=== PATIENT | female | born 1955 | race Caucasian/White ===

== ENCOUNTER 2017-12-16 22:13 | Emergency (ER) | payer OTHER, SELFPAY ==
[2017-12-16 22:25] VITALS: BP 183/100; PULSE 112; RESP 12; TEMP 37.2; O2SAT 95; BMI 26.6
--- NOTE | 2017-12-16 23:05 | DI.CT.S_ITS ---
PROCEDURE: CT ABDOMEN PELVIS W CON INDICATIONS: pain vomiting marilu stool TECHNIQUE: After the administration of intravenous contrast, 5 mm thick sections acquired from the diaphragm to the symphysis. 5 mm coronal and sagittal reformats were acquired. For radiation dose reduction, the following was used: automated exposure control, adjustment of mA and/or kV according to patient size. COMPARISON: [facility], CT, ABDOMEN WITH CONTRAST, 07/11/2017, 11:53. FINDINGS: Image quality: Excellent. ABDOMEN: Lung bases: Lung bases are clear. Heart size is normal. Solid organs: Liver is normal in size and enhancement. Diffuse fatty infiltration of the liver. Gallbladder surgically absent. Biliary system is non dilated. Pancreas enhances normally. Spleen is normal in size and enhancement. No adrenal nodules. Kidneys demonstrate normal size and enhancement, without hydronephrosis. Exophytic left renal cyst is stable compared to prior exam. Peritoneum and bowel: Bowel loops demonstrate normal wall thickness and caliber. No free fluid or air. The appendix is normal. Nodes and vessels: No retroperitoneal or mesenteric adenopathy by size criteria. Aorta and inferior vena cava are normal in size. Miscellaneous: No ventral hernias. Stranding of the subcutaneous fat of the anterior mid abdominal wall which is stable compared to prior CT scan. PELVIS: Genitourinary: Bladder wall thickness is normal. Pessary ring noted. Miscellaneous: No inguinal hernias or adenopathy. Bones: No suspicious bony lesions. No vertebral body compression fractures. IMPRESSION: 1. No acute disease process. 2. Hepatic steatosis. 3. Status post cholecystectomy. Dictated by: Prudence Blake MD, PhD on 12/17/2017 at 9:13 Approved by: Prudence Blake MD, PhD on 12/17/2017 at 9:18
[2017-12-16 23:14] LABS: Add Manual Diff / Slide Review NO; Basophils Percent Auto 0.5 % (0-2); Eosinophils Percent Auto 0.6 % (2-4); Hematocrit 42.5 % (36-46); Hemoglobin 14.6 g/dL (12.0-16.0); Lymphocytes Percent Auto 50.4 % (25-40); Mean Corpuscular HGB Conc 34.4 % (30-36); Mean Corpuscular Hemoglobin 31.5 PG (26-34); Mean Corpuscular Volume 91.7 fL (80-100); Monocytes Percent Auto 5.8 % (3-14); Neutrophils Absolute Auto 4100 /uL (3000-5900); Neutrophils Percent Auto 42.7 % (50-75); Platelet Count 234 X10^3/uL (150-400); Red Blood Cell Count 4.64 X10^6/uL (4.0-5.2); Red Cell Distribution Width 12.9 % (11.6-14.8); White Blood Cell Count 9.6 X10^3/uL (4.5-11.0)
[2017-12-16 23:16] LABS: Alanine Aminotransferase 26 IU/L (9-52); Albumin 4.4 g/dL (3.5-5.0); Albumin Globulin Ratio 1.4 (1.0-2.8); Alkaline Phosphatase 176 U/L (38-126); Aspartate Aminotransferase 27 IU/L (14-36); BUN Creatinine Ratio 22.2 (6-22); Bilirubin Total 0.6 mg/dL (0.2-1.3); Blood Urea Nitrogen 20 mg/dL (7-17); Calcium 9.4 mg/dL (8.4-10.2); Carbon Dioxide 27 mmol/L (22-32); Chloride 100 mmol/L (98-107); Estimated Glomerular Filt Rate > 60.0 mL/min (>60); Globulin 3.2 g/dL (1.7-4.1); Glucose 336 mg/dL (80-110); Lipase 93 U/L (23-300); Sodium 138 mmol/L (137-145); Total Protein 7.6 g/dL (6.3-8.2)
[2017-12-16 23:18] LABS: HEMOLYSIS 62 (0-50)
[2017-12-16 23:20] LABS: Potassium 4.1 mmol/L (3.4-5.1)
--- NOTE | 2017-12-16 23:27 | ED_ITS ---
HPI - Abdominal Pain General Chief Complaint: Abdominal Pain Stated Complaint: STOMACH MAIN MARILU COLOR STOOLS BLOOD SUGAR 300 Time Seen by Provider: 12/16/17 22:50 Source: patient Mode of arrival: ambulatory Limitations: no limitations History of Present Illness HPI narrative: Patient is a 62-year-old female who presents with a variety of complaints. She has abdominal pain and nausea no vomiting. Started today yesterday she had 1 episode of marilu colored stool no further stool since. No blood. She has not had marilu-colored stool since her gallbladder was removed 20 years ago. She has not had any fever. She also has migraine headache she took her Imitrex which usually helps however it did not help this time. As this feels like a typical migraine she has no focal deficits. She has also itching all over she has no hives no difficulty breathing no tongue swelling or lip swelling. This is been ongoing for a few days. He is also a type 1 diabetic takes insulin and her glucose has been elevated in the 200 for the last couple of days as well. She was just in [facility] [place] on vacation MD complaint: abdominal pain Related Data Home Medications Medication Instructions Recorded Confirmed ibuprofen [Advil] 200 mg PO Q4HP PRN #0 07/11/17 10/17/17 Previous Rx's Medication Instructions Recorded Glucose: Test Strips 0 str #30 12/03/15 insulin aspart U-100 [Novolog 0 SQ TIDP PRN #15 vial 05/18/16 Flexpen U-100 Insulin] lisinopril 30 mg PO Q DAY #30 tab 05/31/16 famotidine [Pepcid] 40 mg PO BID #60 tab 06/03/16 estradiol [Vagifem] 10 mcg VG SEE INSTRUCTIONS #24 tab 08/03/16 amitriptyline 40 mg PO HS #120 tab 04/28/17 medroxyprogesterone 10 mg PO QDAY #14 tab 05/24/17 estradiol [Estring] 2 mg VAGINAL SEE INSTRUCTIONS #1 ea 05/25/17 insulin glargine [Lantus Solostar 40 - 45 unit SQ Q DAY #15 u 07/03/17 U-100 Insulin] citalopram 40 mg tablet 60 mg PO QDAY #135 tab 08/25/17 clonazepam 1 mg tablet 1 mg PO BID #60 tab 08/29/17 alprazolam 0.5 mg tablet See Label Instructions PO Q8H PRN 09/07/17 #30 tab sumatriptan 100 mg tablet 100 mg PO Q6HP #36 tab 10/17/17 sumatriptan 20 mg/actuation nasal 20 mg INTRANASAL SEE INSTRUCTIONS 10/17/17 spray #1 bot topiramate 100 mg tablet 100 mg PO .COMPLEX #60 tab 10/17/17 topiramate 50 mg tablet 50 mg PO .COMPLEX #60 tab 10/17/17 gabapentin 800 mg tablet 800 mg PO TID #90 tab 10/24/17 hydrocodone 10 mg-acetaminophen 1 - 2 tab PO Q4H PRN #90 tab 10/27/17 325 mg tablet zolpidem 5 mg tablet 5 mg PO HS PRN #30 tab 11/06/17 [place] 0 dev #150 11/09/17 Allergies Allergy/AdvReac Type Severity Reaction Status Date / Time codeine [CODEINE] AdvReac Intermediate nausea Verified 10/17/17 15:23 pantoprazole [PANTOPRAZOLE] AdvReac Intermediate NAUSEA, Verified 10/17/17 15:23 TINGLING IN HANDS AND FEET Review of Systems Review of Systems All systems reviewed & are unremarkable except as noted in HPI and below Constitutional Denies chills, Denies fever(s), Reports headache(s), Denies lethargy and Denies weakness Eyes Denies change in vision, Denies eye discharge, Denies irritation and Denies loss of vision ENT Ears, Nose, Mouth, and Throat: Denies change in voice, Reports headache(s), Denies neck pain and Denies sore throat Cardiovascular Denies chest pain, Denies irregular heart rhythm, Denies lightheadedness, Denies palpitations, Denies dyspnea, Denies dyspnea on exertion and Denies orthopnea Respiratory Denies cough, Denies dyspnea, Denies dyspnea on exertion and Denies wheezing Gastrointestinal Gastrointestinal: Reports as per HPI Musculoskeletal Denies neck pain Integumentary/Breasts Denies pruritus, Denies erythema, Denies rash and Denies wounds Neurologic Reports headache(s), Denies loss of vision and Denies weakness Endocrine Denies palpitations Allergic/Immunologic Denies wheezing PFSH Social History Smoking Status: Never smoker Exam Initial Vital Signs Initial Vital Signs: Vital Signs Temperature 98.9 F 12/16/17 22:25 Pulse Rate 112 H 12/16/17 22:25 Respiratory Rate 12 12/16/17 22:25 Blood Pressure 183/100 H 12/16/17 22:25 Pulse Oximetry 95 12/16/17 22:25 GENERAL: Well-appearing, well-nourished and in no acute distress. Slightly anxious HEENT: Head atraumatic,EOMI, pupils reactive, face symmetric, neck is supple no meningeal signs CARDIOVASCULAR: Regular rate and rhythm without murmurs, rubs or gallops. RESPIRATORY: Breath sounds equal bilaterally, no wheezes rales or rhonchi. ABDOMEN: Soft, nontender. Normoactive bowel sounds all 4 quadrants. No guarding or rebound. EXTREMITIES: Normal range of motion, no clubbing or edema. Neurovascularly intact NEUROLOGICAL: Alert and oriented x4.Normal gait and speech. Cranial nerves II through XII grossly intact. Body Shop Supervisor strength equal bilaterally SKIN: Warm, dry, no laceration, no petechiae, no rashes or lesions. Course Orders Ordered: ED Orders 12/16/17 22:50 Complete Blood Count AUTO DIFF Stat Comprehensive Metabolic Panel Stat Lipase Stat 12/16/17 23:05 CT abdomen pelvis w con Stat Discontinued Medications Sodium Chloride (Normal Saline 0.9%) 1,000 mls @ 1,000 mls/hr IV CONT KELLI Last Infusion: 12/17/17 01:09 Dose: 1,000 mls/hr Admin: 12/16/17 23:42 Dose: 1,000 mls/hr Ketorolac Tromethamine (Toradol) 30 mg IV NOW ONE Stop: 12/16/17 23:05 Last Admin: 12/16/17 23:42 Dose: 30 mg Ondansetron HCl (Zofran) 4 mg IV NOW ONE Stop: 12/16/17 23:05 Last Admin: 12/16/17 23:43 Dose: 4 mg Vital Signs - 8 hr 12/16/17 22:25 12/17/17 01:11 Temperature 98.9 F 97.8 F Pulse Rate 112 H 85 Respiratory Rate 12 17 Blood Pressure 183/100 H 135/79 Pulse Oximetry 95 100 MDM - Abdominal Pain Lab Data Attestation: I reviewed the patient's lab results. Result diagrams: 12/16/17 22:50 12/16/17 22:50 Lab Results 12/16/17 12/16/17 Range/Units 22:50 22:50 WBC 9.6 (4.5-11.0) X10^3/uL RBC 4.64 (4.0-5.2) X10^6/uL Hgb 14.6 (12.0-16.0) g/dL Hct 42.5 (36-46) % MCV 91.7 (80-100) fL MCH 31.5 (26-34) PG MCHC 34.4 (30-36) % RDW 12.9 (11.6-14.8) % Plt Count 234 (150-400) X10^3/uL Neut % (Auto) 42.7 L (50-75) % Lymph % (Auto) 50.4 H (25-40) % [place] % (Auto) 5.8 (3-14) % Eos % (Auto) 0.6 L (2-4) % Baso % (Auto) 0.5 (0-2) % Neut # (Auto) 4100 (6213-2474) /uL Sodium 138 (137-145) mmol/L Potassium 4.1 (3.4-5.1) mmol/L Chloride 100 (98-107) mmol/L Carbon Dioxide 27 (22-32) mmol/L BUN 20 H (7-17) mg/dL Creatinine 0.90 (0.52-1.04) mg/dL Estimated GFR > 60.0 (>60) mL/min BUN/Creatinine Ratio 22.2 H (6-22) Glucose 336 H (80-110) mg/dL Calcium 9.4 (8.4-10.2) mg/dL Total Bilirubin 0.6 (0.2-1.3) mg/dL AST 27 (14-36) IU/L ALT 26 (9-52) IU/L Alkaline Phosphatase 176 H (38-126) U/L Total Protein 7.6 (6.3-8.2) g/dL Albumin 4.4 (3.5-5.0) g/dL Globulin 3.2 (1.7-4.1) g/dL Albumin/Globulin Ratio 1.4 (1.0-2.8) Lipase 93 (23-300) U/L Imaging Data CT scan - abdomen: 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 Cholecystectomy. Simple cyst left kidney MDM Narrative Medical decision making narrative: Patient overall is feeling much better after Toradol. Blood work and CT are reassuring. Feels ready and able to go home. Discharge Plan Departure Patient Disposition: Home Clinical Impression: Abdominal pain, Migraine Discharge Date/Time: 12/17/17 01:12 Interventions: ED Discharge Assessment Last Done: 12/17/17 01:11 Instructions: DI for Abdominal Pain-Adult Activity Restrictions/Additional Instructions: *You have been diagnosed with abdominal pain and migraine headache *What to do: Blood work and CT are reassuring and within normal limits. *Continue to take medications as directed *Follow up with your primary care provider in 2-3 days *Return to ER if you should have any new, worsening or concerning symptoms Prescriptions: No Action Glucose: Test Strips Qty: 30 RF: 3 insulin aspart U-100 [Novolog Flexpen U-100 Insulin] 100 UNIT/1 ML insulin pen SQ TIDP PRNQty: 15 RF: 3 lisinopril 30 MG tablet 30 mg PO Q DAY Qty: 30 RF: 5 famotidine [Pepcid] 40 MG tablet 40 mg PO BID Qty: 60 RF: 0 estradiol [Vagifem] 10 MCG tablet 10 mcg VG SEE INSTRUCTIONS Qty: 24 RF: 0 amitriptyline 10 MG tablet 40 mg PO HS Qty: 120 RF: 6 medroxyprogesterone 10 MG tablet 10 mg PO QDAY Qty: 14 RF: 0 estradiol [Estring] 1 EACH ring 2 mg Vaginal SEE INSTRUCTIONS Qty: 1 RF: 3 insulin glargine [Lantus Solostar U-100 Insulin] 100 UNIT/1 ML insulin pen 40 - 45 unit SQ Q DAY Qty: 15 RF: 3 ibuprofen [Advil] 200 MG tablet 200 mg PO Q4HP PRNQty: 0 RF: 0 clonazepam 1 mg tablet 1 mg PO BID Qty: 60 RF: 3 alprazolam 0.5 mg tablet See Label Instructions PO Q8H PRN (Reason: anxiety) Qty: 30 RF: 0 gabapentin 800 mg tablet 800 mg PO TID Qty: 90 RF: 5 hydrocodone-acetaminophen 10-325 mg tablet 1 - 2 tab PO Q4H PRN (Reason: pain) Qty: 90 RF: 0 zolpidem 5 mg tablet 5 mg PO HS PRN (Reason: insomnia) Qty: 30 RF: 0 [place] Qty: 150 RF: PRN citalopram 40 mg tablet 60 mg PO QDAY Qty: 135 RF: 3 topiramate [Topamax] 100 mg tablet 100 mg PO .COMPLEX Qty: 60 RF: 11 topiramate 50 mg tablet 50 mg PO .COMPLEX Qty: 60 RF: 11 sumatriptan [Imitrex] 20 mg/actuation spray,non-aerosol 20 mg Intranasal SEE INSTRUCTIONS Qty: 1 RF: 0 sumatriptan succinate [Imitrex] 100 mg tablet 100 mg PO Q6HP Qty: 36 RF: 1 Referrals: Lewis Martinez MD [Primary Care Provider] -
[2017-12-16] MEDS: SODIUM CHLORIDE 0.9% 1,000 ML 1000 ML IV (23:42)
[2017-12-16] MEDS: KETOROLAC 60 MG/2 ML VIAL 30 MG IV (23:42)
[2017-12-16] MEDS: ONDANSETRON 4 MG/2 ML INJ IV (23:43)
[2017-12-17 01:11] VITALS: BP 135/79; PULSE 85; RESP 17; TEMP 36.6; O2SAT 100
== END 2017-12-17 01:12 | disposition home or self-care (01) ==
PROVIDERS: Emergency Provider Emergency Medicine; Family Provider Specialist; PCP Internal Medicine
DX: R10.9 Unspecified abdominal pain (principal); G43.909 Migraine, unspecified, not intractable, without status migrainosus
CPT/HCPCS: 74177; 80053; 83690; 85025; 96361; 96374; 96375; 99283; 99285; J1885; J2405; Q9967

== ENCOUNTER → 2017-12-20 12:53 | Outpatient (CLI) | payer OTHER, SELFPAY ==
[2017-12-20 14:01] LABS: Alanine Aminotransferase 28 IU/L (9-52); Albumin 4.1 g/dL (3.5-5.0); Albumin Globulin Ratio 1.4 (1.0-2.8); Alkaline Phosphatase 138 U/L (38-126); Aspartate Aminotransferase 18 IU/L (14-36); BUN Creatinine Ratio 25.7 (6-22); Bilirubin Total 0.7 mg/dL (0.2-1.3); Blood Urea Nitrogen 18 mg/dL (7-17); Calcium 9.3 mg/dL (8.4-10.2); Carbon Dioxide 29 mmol/L (22-32); Chloride 100 mmol/L (98-107); Cholesterol 253 mg/dL (140-199); Estimated Glomerular Filt Rate > 60.0 mL/min (>60); Glucose 376 mg/dL (80-110); HDL Cholesterol 35 mg/dL (40-60); HEMOLYSIS < 15 (0-50); Potassium 3.9 mmol/L (3.4-5.1); Sodium 140 mmol/L (137-145); Total Protein 7.1 g/dL (6.3-8.2); Triglycerides 470 mg/dL (35-150)
[2017-12-20 14:19] LABS: Erythrocyte Sedimentation Rate 10 MM/HR (0-20)
[2017-12-20 14:31] LABS: TSH w/ Reflex to FT4 1.19 uIU/mL (0.47-4.68)
== END ==
PROVIDERS: Family Provider Specialist; Visit Provider Internal Medicine
DX: K76.0 Fatty (change of) liver, not elsewhere classified (principal); R10.84 Generalized abdominal pain
CPT/HCPCS: 36415; 80053; 80061; 84443; 85651

== ENCOUNTER → 2018-07-06 12:25 | Outpatient (CLI) | payer OTHER, SELFPAY ==
[2018-07-06 13:55] LABS: Alanine Aminotransferase 35 IU/L (9-52); Albumin 4.5 g/dL (3.5-5.0); Albumin Globulin Ratio 1.4 (1.0-2.8); Alkaline Phosphatase 106 U/L (38-126); Aspartate Aminotransferase 22 IU/L (14-36); BUN Creatinine Ratio 18.6 (6-22); Bilirubin Total 0.8 mg/dL (0.2-1.3); Blood Urea Nitrogen 13 mg/dL (7-17); Calcium 9.4 mg/dL (8.4-10.2); Carbon Dioxide 22 mmol/L (22-32); Chloride 105 mmol/L (98-107); Cholesterol 292 mg/dL (140-199); Estimated Glomerular Filt Rate > 60.0 mL/min (>60); Globulin 3.2 g/dL (1.7-4.1); Glucose 235 mg/dL (80-110); HDL Cholesterol 34 mg/dL (40-60); HEMOLYSIS < 15 (0-50); LDL Cholesterol Calculated 187 mg/dL (<100); Potassium 4.4 mmol/L (3.4-5.1); Sodium 138 mmol/L (137-145); Total Protein 7.7 g/dL (6.3-8.2); Triglycerides 353 mg/dL (35-150)
== END ==
PROVIDERS: Family Provider Specialist; PCP Internal Medicine; Visit Provider Internal Medicine
DX: E78.00 Pure hypercholesterolemia, unspecified (principal)
CPT/HCPCS: 36415; 80053; 80061

== ENCOUNTER → 2018-08-08 11:10 | Outpatient (CLI) | payer OTHER, SELFPAY ==
[2018-08-09 16:18] LABS: C Peptide 2.66 ng/mL (0.80-3.85)
== END ==
PROVIDERS: Family Provider Specialist; PCP Internal Medicine; Visit Provider Internal Medicine
DX: E11.9 Type 2 diabetes mellitus without complications (principal)
CPT/HCPCS: 36415; 84681

== ENCOUNTER → 2018-09-01 13:44 | Outpatient (CLI) | payer OTHER, SELFPAY ==
[2018-09-01 17:05] LABS: Urine Chlamydia NOT DETECTED; Urine N gonorrhoeae NOT DETECTED
== END ==
PROVIDERS: Family Provider Specialist; PCP Internal Medicine; Visit Provider Physician Assistant
DX: N89.8 Other specified noninflammatory disorders of vagina (principal)
CPT/HCPCS: 87077; 87086; 87210; 87491; 87591

== ENCOUNTER → 2018-09-09 12:23 | Outpatient (CLI) | payer OTHER, SELFPAY | PROVIDERS: Family Provider Specialist; PCP Internal Medicine; Visit Provider Physician Assistant | DX: B96.89 Other specified bacterial agents as the cause of diseases classified elsewhere (principal); N76.0 Acute vaginitis | CPT/HCPCS: 87210 ==

== ENCOUNTER → 2019-04-16 13:21 | Outpatient (CLI) | payer OTHER, SELFPAY ==
[2019-04-16 14:12] LABS: Alanine Aminotransferase 26 IU/L (<35); Albumin 4.8 g/dL (3.5-5.0); Albumin Globulin Ratio 1.3 (1.0-2.8); Alkaline Phosphatase 209 U/L (38-126); Aspartate Aminotransferase 28 IU/L (14-36); BUN Creatinine Ratio 33.3 (6-22); Bilirubin Total 0.7 mg/dL (0.2-1.3); Blood Urea Nitrogen 20 mg/dL (7-17); Calcium 9.8 mg/dL (8.4-10.2); Carbon Dioxide 25 mmol/L (22-32); Chloride 99 mmol/L (98-107); Estimated Glomerular Filt Rate > 60.0 mL/min (>60); Globulin 3.7 g/dL (1.7-4.1); Glucose 399 mg/dL (80-110); HDL Cholesterol 28 mg/dL (40-60); HEMOLYSIS 27 (0-50); Potassium 4.4 mmol/L (3.4-5.1); Sodium 136 mmol/L (137-145); Total Protein 8.5 g/dL (6.3-8.2)
[2019-04-16 14:21] LABS: Cholesterol 332 mg/dL (140-199); Triglycerides 732 mg/dL (35-150)
== END ==
PROVIDERS: Family Provider Specialist; PCP Internal Medicine; Visit Provider Internal Medicine
DX: M48.02 Spinal stenosis, cervical region (principal); E11.9 Type 2 diabetes mellitus without complications; I10 Essential (primary) hypertension
CPT/HCPCS: 36415; 80053; 80061

== ENCOUNTER → 2019-04-23 12:58 | Outpatient (CLI) | payer OTHER, SELFPAY ==
--- NOTE | 2019-04-23 | DI.MRI.S_ITS ---
PROCEDURE: MR CERVICAL SPINE WO CON INDICATIONS: Spinal stenosis, cervical region TECHNIQUE: Noncontrast sagittal T1 spin echo and T2 fast spin echo, sagittal STIR, foraminal oblique sagittal T2 fast spin echo, and axial gradient echo or T2 fast spin echo through the cervical spine. COMPARISON: [facility], , CERVICAL SPINE 2 OR 3 VIEWS, 06/18/2009, 9:39. FINDINGS: Image quality: This examination is limited by involuntary motion artifact. Alignment and Curvature: There is mild retrolisthesis seen at the C4-C5 level. There is overall straightening of the normal cervical lordosis. Bone Marrow: Marrow demonstrates normal overall signal. Spinal Cord: Visualized spinal cord has normal size and signal. No cerebellar tonsillar herniation. Paraspinous Soft Tissues: No paravertebral masses. Prevertebral soft tissues are normal in thickness. C2-C3: Normal appearance. C3-C4: Normal appearance. C4-C5: Moderate loss of disc height is seen. Loss of disc signal is seen. Moderate to prominent generalized disc osteophyte complex is seen. Moderate facet joint hypertrophy is seen. There is moderate to severe bilateral neural foraminal narrowing seen, left worse than right. Moderate to severe central canal narrowing is seen, as on series 4 image 24. There is associated mass effect upon the ventral spinal cord. C5-C6: At least moderate disc osteophyte complex is seen. There is moderate bilateral neural foraminal narrowing seen, left worse than right. At least moderate central canal narrowing is seen. C6-C7: Mild loss of disc height is seen. Loss of disc signal is seen. Moderate to severe disc osteophyte complex is seen. Moderate to severe bilateral neural foraminal narrowing is seen. At least moderate central canal narrowing is seen. There is associated mass effect upon the ventral spinal cord. C7-T1: No significant abnormality is seen. IMPRESSION: Multiple levels of cervical spine degenerative change are seen, which are most prominent inferiorly. Dictated by: Adarsh Elizabeth M.D. on 04/23/2019 at 17:02 Approved by: Adarsh Elizabeth M.D. on 04/23/2019 at 17:06
== END ==
PROVIDERS: PCP Internal Medicine; Referring Provider Internal Medicine Endocrinology, Diabetes & Metabolism; Visit Provider Internal Medicine
DX: M48.02 Spinal stenosis, cervical region (principal); M47.812 Spondylosis without myelopathy or radiculopathy, cervical region
CPT/HCPCS: 72141

== ENCOUNTER → 2019-04-29 12:57 | Outpatient (CLI) | payer OTHER, SELFPAY ==
--- NOTE | 2019-04-29 | DI.US.S_ITS ---
PROCEDURE: US PELVIC COMPLETE INDICATIONS: POSTMENOPAUSAL BLEEDING TECHNIQUE: Real-time scanning was performed of the pelvic organs, with image documentation. Additional endovaginal scanning was necessary due to incomplete visualization of the adnexal and endometrial structures by transabdominal scanning. COMPARISON: [facility], CT, CT ABDOMEN PELVIS W CON, 12/16/2017, 23:45. [facility], US, US PELVIC COMPLETE, 08/09/2017, 15:15. FINDINGS: Transabdominal scanning: Limited scanning through the kidneys shows no hydronephrosis. No pathologic free abdominal or pelvic fluid. Endovaginal scanning: Uterus: Uterus is retroverted and normal in size at 4.2 x 3.3 x 3.3 cm. The endometrium measures 5 mm in combined thickness. Question of endometrial polyp measuring 0.6 cm. No internal vascularity. Ovaries: Within normal limits. Right ovary measures 1.4 x 2.1 x 1.4 cm. Left ovary measures 1.2 x 1.1 x 1.4 cm. IMPRESSION: 1. Persistent thickening of the endometrium measuring up to 5 mm in this postmenopausal patient with bleeding. Report that the patient had prior negative endometrial biopsy. Recommend continued surveillance. 2. Question of a small endometrial polyp. 3. Sonographic appearance of the ovaries is normal. Dictated by: Ramu Elkins M.D. on 04/29/2019 at 15:50 Approved by: Ramu Elkins M.D. on 04/29/2019 at 15:57
== END ==
PROVIDERS: PCP Internal Medicine; Referring Provider Internal Medicine Endocrinology, Diabetes & Metabolism; Visit Provider Obstetrics & Gynecology
DX: N95.0 Postmenopausal bleeding (principal); R93.89 Abnormal findings on diagnostic imaging of other specified body structures
CPT/HCPCS: 76830; 76856

== ENCOUNTER → 2019-05-14 17:32 | Outpatient (CLI) | payer OTHER, SELFPAY ==
--- NOTE | 2019-05-14 | DI.MRI.S_ITS ---
PROCEDURE: MR THORACIC SPINE WO CON INDICATIONS: BACK PAIN TECHNIQUE: Noncontrast sagittal T1 spine echo and T2 fast spin echo, sagittal STIR, axial T1 and T2 fast spin echo through the thoracic spine. COMPARISON: None. FINDINGS: Image quality: Excellent. Alignment and Curvature: There is normal bony alignment. Bone Marrow: Marrow is of normal overall signal. No acute vertebral body compression fractures. Spinal Cord: Visualized spinal cord is normal in size and signal. The minimal degenerative changes are seen along the intervertebral disc spaces. No intrinsic lesion is seen within the visualized lower cervical cord and thoracic cord. No adjacent paraspinal inflammation is seen. Paraspinous Soft Tissues: No paravertebral masses. Miscellaneous: On axial images, central canal and foramina appear widely patent at all scanned levels. IMPRESSION: Minimal degenerative changes, no underlying infection or neoplasm suspected. No trauma found. Dictated by: Arun Bassett M.D. on 05/15/2019 at 9:11 Approved by: Arun Bassett M.D. on 05/15/2019 at 9:12
--- NOTE | 2019-05-14 | DI.MRI.S_ITS ---
PROCEDURE: MR LUMBAR SPINE WO CON INDICATIONS: BACK PAIN TECHNIQUE: Noncontrast sagittal T1 spin echo and T2 fast echo, sagittal STIR, axial T1 and T2 fast spin echo through the lumbar spine. In cases with scoliosis, additional coronal T2 fast spin echo may be performed. COMPARISON: None. FINDINGS: Image quality: Excellent. Alignment and Curvature: There is normal bony alignment. Bone Marrow: Marrow is of normal overall signal. No acute vertebral body compression fractures. Spinal Cord: Conus medullaris terminates at the L1 level. Visualized cord demonstrates normal signal and size. Paraspinous Soft Tissues: No paravertebral masses. L1-L2: Normal appearance. L2-L3: Normal appearance. L3-L4: Normal appearance except for a slight degree of degenerative disc dehydration and bilateral mild facet osteoarthritis. No spinal or foraminal stenosis is associated.. L4-L5: A slight degree of degenerative disc dehydration is present, minimal disc height loss. Facet osteoarthritis is mild, slightly greater on the left than the right. No significant spinal or foraminal stenosis. L5-S1: Mild to moderate degenerative disc height reduction and desiccation. There is a slight posterior midline disc bulge. Facet osteoarthritis is mild, no appreciable spinal or foraminal stenosis. IMPRESSION: The degenerative changes along the lumbosacral spine are quite mild, and no area of spinal or foraminal stenosis is seen. No prior trauma found. Facet osteoarthritis may result in back pain, and there is generally symmetric mild facet degeneration except slightly greater on the left than the right at L4-L5. No prior trauma found. Dictated by: Arun Bassett M.D. on 05/15/2019 at 9:13 Approved by: Arun Bassett M.D. on 05/15/2019 at 9:17
== END ==
PROVIDERS: PCP Internal Medicine; Referring Provider Internal Medicine; Visit Provider Internal Medicine
DX: M54.9 Dorsalgia, unspecified (principal); M47.816 Spondylosis without myelopathy or radiculopathy, lumbar region; M47.817 Spondylosis without myelopathy or radiculopathy, lumbosacral region
CPT/HCPCS: 72146; 72148

== ENCOUNTER → 2019-06-17 10:41 | Outpatient (CLI) | payer OTHER, SELFPAY ==
[2019-06-17 12:40] LABS: BUN Creatinine Ratio 39.2 (6-22); Blood Urea Nitrogen 20 mg/dL (7-17); Calcium 9.3 mg/dL (8.4-10.2); Carbon Dioxide 28 mmol/L (22-32); Chloride 99 mmol/L (98-107); Estimated Glomerular Filt Rate > 60.0 mL/min (>60); Glucose 230 mg/dL (80-110); HEMOLYSIS 17 (0-50); Potassium 4.5 mmol/L (3.4-5.1); Sodium 136 mmol/L (137-145)
[2019-06-17 15:33] LABS: Creatinine Urine Random 31.7 mg/dL
[2019-06-17 15:37] LABS: Microalbumin Urine Random 1.3 mg/dL (0-1.6)
== END ==
PROVIDERS: PCP Internal Medicine; Referring Provider Internal Medicine Endocrinology, Diabetes & Metabolism; Visit Provider Internal Medicine Endocrinology, Diabetes & Metabolism
DX: E10.42 Type 1 diabetes mellitus with diabetic polyneuropathy (principal)
CPT/HCPCS: 36415; 80048; 82043; 82570; 83036

== ENCOUNTER → 2019-12-05 15:15 | Outpatient (CLI) | payer OTHER, SELFPAY ==
[2019-12-05 16:23] LABS: Add Manual Diff / Slide Review NO; Basophils Absolute Auto 100 /uL (0-100); Basophils Percent Auto 0.7 % (0-2); Eosinophils Absolute Auto 100 /uL (0-450); Eosinophils Percent Auto 0.7 % (2-4); Hemoglobin 13.1 g/dL (12.0-16.0); Lymphocytes Absolute Auto 4200 /uL (1100-4500); Lymphocytes Percent Auto 55.2 % (25-40); Mean Corpuscular HGB Conc 33.5 % (30-36); Mean Corpuscular Hemoglobin 30.3 PG (26-34); Mean Corpuscular Volume 90.4 fL (80-100); Monocytes Absolute Auto 400 /uL (0-900); Monocytes Percent Auto 5.8 % (3-14); Neutrophils Absolute Auto 2900 /uL (1500-7000); Neutrophils Percent Auto 37.6 % (50-75); Platelet Count 241 X10^3/uL (150-400); Red Blood Cell Count 4.32 X10^6/uL (4.0-5.2); White Blood Cell Count 7.7 X10^3/uL (4.5-11.0)
[2019-12-05 16:40] LABS: Hemoglobin A1C% w Est Avg Glu 9.2 % (4.0-6.0)
[2019-12-05 16:41] LABS: Alanine Aminotransferase 27 IU/L (<35); Albumin 4.3 g/dL (3.5-5.0); Albumin Globulin Ratio 1.4 (1.0-2.8); Alkaline Phosphatase 118 U/L (38-126); Aspartate Aminotransferase 26 IU/L (14-36); BUN Creatinine Ratio 30.6 (6-22); Bilirubin Total 0.5 mg/dL (0.2-1.3); Blood Urea Nitrogen 19 mg/dL (7-17); Calcium 9.2 mg/dL (8.4-10.2); Carbon Dioxide 28 mmol/L (22-32); Chloride 103 mmol/L (98-107); Cholesterol 260 mg/dL (140-199); Estimated Glomerular Filt Rate > 60.0 mL/min (>60); Glucose 235 mg/dL (80-110); HDL Cholesterol 32 mg/dL (40-60); HEMOLYSIS 17 (0-50); Magnesium 1.8 mg/dL (1.6-2.3); Sodium 137 mmol/L (137-145); Total Protein 7.3 g/dL (6.3-8.2); Triglycerides 487 mg/dL (35-150)
[2019-12-05 17:10] LABS: TSH w/ Reflex to FT4 1.47 uIU/mL (0.47-4.68)
[2019-12-06 10:55] LABS: SARS CoV19 IgG Negative (Negative)
== END ==
PROVIDERS: PCP Internal Medicine; Referring Provider Physician Assistant; Visit Provider Internal Medicine
DX: E11.9 Type 2 diabetes mellitus without complications (principal); K76.0 Fatty (change of) liver, not elsewhere classified; I10 Essential (primary) hypertension; E78.2 Mixed hyperlipidemia; R30.0 Dysuria; Z03.818 Encounter for observation for suspected exposure to other biological agents ruled out; R05 Cough; R00.2 Palpitations
CPT/HCPCS: 36415; 80053; 80061; 83036; 83735; 84443; 85025; 86769

== ENCOUNTER → 2020-02-24 14:48 | Outpatient (CLI) | payer OTHER, SELFPAY ==
[2020-02-24 15:29] LABS: COVID19 -Nasal RAPID Negative (Negative)
== END ==
PROVIDERS: PCP Internal Medicine; Visit Provider Physician Assistant
DX: Z11.59 Encounter for screening for other viral diseases (principal)
CPT/HCPCS: 87635

== ENCOUNTER → 2020-03-25 17:01 | Outpatient (CLI) | payer OTHER, SELFPAY ==
[2020-03-25 17:25] LABS: COVID19 -Nasal RAPID Negative (Negative)
== END ==
PROVIDERS: PCP Internal Medicine; Visit Provider Nurse Practitioner
DX: N34.3 Urethral syndrome, unspecified (principal); Z20.828 Contact with and (suspected) exposure to other viral communicable diseases
CPT/HCPCS: 87086; 87635

== ENCOUNTER → 2020-04-02 12:30 | Outpatient (CLI) | payer OTHER, SELFPAY ==
--- NOTE | 2020-04-02 | DI.CT.S_ITS ---
PROCEDURE: CT HEAD/BRAIN WO CON INDICATIONS: Headache, unspecified TECHNIQUE: Noncontrast 4.5 mm thick angled axial sections acquired from the foramen magnum to the vertex, with coronal and sagittal reformats. For radiation dose reduction, the following was used: automated exposure control, adjustment of mA and/or kV according to patient size. COMPARISON: None. FINDINGS: Image quality: Excellent. CSF spaces: Basal cisterns are patent. No extra-axial fluid collections. The ventricles are symmetric in size and shape. Brain: No intracranial bleeds or masses. There is cerebral volume loss for age, with resultant ventricular and sulcal prominence. There are periventricular and deep white matter chronic small vessel ischemic changes. There is intracranial internal carotid artery atherosclerosis. Skull and face: Calvarium and visualized facial bones appear intact, without suspicious lesions. Sinuses: Visualized sinuses and mastoids are clear. IMPRESSION: No acute intracranial process. Dictated by: Surinder Lopez M.D. on 04/02/2020 at 13:21 Approved by: Surinder Lopez M.D. on 04/02/2020 at 13:25
== END ==
PROVIDERS: PCP Internal Medicine; Referring Provider Neuromusculoskeletal Medicine, Sports Medicine; Visit Provider Neuromusculoskeletal Medicine, Sports Medicine
DX: R51.9 Headache, unspecified (principal)
CPT/HCPCS: 70450

== ENCOUNTER → 2020-06-21 14:30 | Outpatient (CLI) | payer OTHER, SELFPAY | PROVIDERS: PCP Internal Medicine; Visit Provider Physician Assistant | DX: N89.8 Other specified noninflammatory disorders of vagina (principal); R30.0 Dysuria | CPT/HCPCS: 87077; 87086; 87186; 87210 ==

== ENCOUNTER → 2020-08-04 15:41 | Outpatient (CLI) | payer OTHER, SELFPAY ==
[2020-08-04 16:34] LABS: Add Manual Diff / Slide Review NO; Basophils Absolute Auto 0 /uL (0-100); Basophils Percent Auto 0.4 % (0-2); Eosinophils Absolute Auto 0 /uL (0-450); Eosinophils Percent Auto 0.1 % (2-4); Hematocrit 41.6 % (36-46); Hemoglobin 14.1 g/dL (12.0-16.0); Lymphocytes Absolute Auto 2200 /uL (1100-4500); Lymphocytes Percent Auto 28.9 % (25-40); Mean Corpuscular HGB Conc 33.8 % (30-36); Mean Corpuscular Hemoglobin 30.1 PG (26-34); Monocytes Absolute Auto 700 /uL (0-900); Monocytes Percent Auto 9.2 % (3-14); Neutrophils Absolute Auto 4700 /uL (1500-7000); Neutrophils Percent Auto 61.4 % (50-75); Platelet Count 227 X10^3/uL (150-400); Red Blood Cell Count 4.67 X10^6/uL (4.0-5.2); Red Cell Distribution Width 12.7 % (11.6-14.8); White Blood Cell Count 7.6 X10^3/uL (4.5-11.0)
[2020-08-04 17:23] LABS: Alanine Aminotransferase 24 IU/L (<35); Albumin 4.2 g/dL (3.5-5.0); Albumin Globulin Ratio 1.1 (1.0-2.8); Alkaline Phosphatase 119 U/L (38-126); Amylase 63 U/L (30-110); Aspartate Aminotransferase 25 IU/L (14-36); BUN Creatinine Ratio 20.6 (6-22); Bilirubin Total 0.7 mg/dL (0.2-1.3); Blood Urea Nitrogen 20 mg/dL (7-17); Calcium 9.5 mg/dL (8.4-10.2); Carbon Dioxide 19 mmol/L (22-32); Chloride 102 mmol/L (98-107); Estimated Glomerular Filt Rate 57.8 mL/min (>60); Globulin 3.7 g/dL (1.7-4.1); Glucose 405 mg/dL (80-110); HEMOLYSIS < 15 (0-50); Lipase 74 U/L (23-300); Potassium 3.9 mmol/L (3.4-5.1); Sodium 132 mmol/L (137-145); Total Protein 7.9 g/dL (6.3-8.2)
[2020-08-04 17:50] LABS: TSH w/ Reflex to FT4 0.63 uIU/mL (0.47-4.68)
[2020-08-05 04:08] LABS: HBsAg Screen Negative (Negative); Hepatitis A Antibody IgM Negative (Negative); Hepatitis B Core Antibody IgM Negative (Negative); Hepatitis C Antibody <0.1 s/co ratio (0.0-0.9)
== END ==
PROVIDERS: PCP Internal Medicine; Referring Provider Physician Assistant; Visit Provider Physician Assistant
DX: R19.7 Diarrhea, unspecified (principal)
CPT/HCPCS: 36415; 80053; 80074; 82150; 83690; 84443; 85025

== ENCOUNTER → 2020-08-17 08:36 | Outpatient (CLI) | payer OTHER, SELFPAY ==
[2020-08-17 09:14] LABS: COVID19 -Nasal RAPID Negative (Negative)
== END ==
PROVIDERS: PCP Internal Medicine; Visit Provider Student in an Organized Health Care Education/Training Program
DX: Z01.812 Encounter for preprocedural laboratory examination (principal); Z20.822 Contact with and (suspected) exposure to COVID-19
CPT/HCPCS: 87635

== ENCOUNTER → 2021-02-03 09:43 | Outpatient (CLI) | payer OTHER, SELFPAY ==
[2021-02-03 11:18] LABS: Cholesterol 259 mg/dL (140-199); HDL Cholesterol 42 mg/dL (40-60); LDL Cholesterol Calculated 157 mg/dL (<100); Triglycerides 299 mg/dL (35-150)
== END ==
PROVIDERS: PCP Internal Medicine; Referring Provider Internal Medicine; Visit Provider Internal Medicine
DX: E78.2 Mixed hyperlipidemia (principal)
CPT/HCPCS: 36415; 80061

== ENCOUNTER → 2021-04-08 16:01 | Outpatient (CLI) | payer OTHER, SELFPAY | PROVIDERS: PCP Internal Medicine; Referring Provider Nurse Practitioner Family; Visit Provider Nurse Practitioner Family | DX: R30.0 Dysuria (principal); N89.8 Other specified noninflammatory disorders of vagina | CPT/HCPCS: 87086; 87210 ==

== ENCOUNTER 2021-05-08 10:08 | Emergency (ER) | payer OTHER, SELFPAY ==
[2021-05-08] VITALS (7 sets, daily range): BP systolic 117–146; BP diastolic 58–69; PULSE 72–83; RESP 14–29; TEMP 36.9; O2SAT 98–100; BMI 32.4
--- NOTE | 2021-05-08 10:22 | ED_ITS ---
HPI - Dizziness General Chief Complaint: Dizziness Stated Complaint: Severe dizziness, numbness in toes Time Seen by Provider: 05/08/21 10:17 History of Present Illness HPI Narrative: Patient is a 65-year-old female with history of rheumatoid arthritis, insulin- dependent diabetes with neuropathy hypertension presenting with 4 days of intermittent dizziness. It seems to be positional. However it started 4 days ago just with sitting and standing however that the last couple of mornings she has noticed it when she rolls over in bed. She gets extremely nauseous and dizzy. She has a remote prior history of vertigo. He says it has never lasted this long before. She has been taking Benadryl for the last 3 months to help with the runny nose. She denies any chest pain or palpitations. She has occasionally had some shortness of breath but it is not consistent. She actually have had it this week. She denies fever body aches or chills. She has had increased numbness in her left toes usually it is in her right toes. She denies any weakness. No difficulty walking. No visual changes. Related Data Home Medications Medication Instructions Recorded Confirmed ibuprofen 200 mg tablet (Advil) 200 mg PO Q4HP PRN #0 18 04/08/21 Previous Rx's Medication Instructions Recorded Glucose: Test Strips 0 str #30 12/03/15 insulin aspart U-100 100 unit/mL 0 SQ TIDP PRN #15 vial 05/18/16 (3 mL) subcutaneous pen (Novolog Flexpen U-100 Insulin aspart) insulin glargine 100 unit/mL (3 40 - 45 unit (0.4 - 0.45 mL) SQ Q 07/03/17 mL) subcutaneous pen (Lantus DAY #15 u Solostar U-100 Insulin) gabapentin 800 mg tablet 800 mg PO TID #90 tab 10/24/17 Cordell 0 dev #150 11/09/17 topiramate 100 mg tablet (Topamax) 100 mg PO .COMPLEX #60 tab 12/25/18 nadolol 40 mg tablet 40 mg PO DAILY #30 tab 03/05/19 fremanezumab-vfrm 225 mg/1.5 mL See Rx Instructions .ROUTE 05/20/19 subcutaneous syringe (Maribell .COMPLEX #1.5 milliliter Syringe) sumatriptan 20 mg/actuation nasal 20 mg NASAL ONCE #6 each 05/21/19 spray sumatriptan succinate 100 mg 100 mg PO .COMPLEX PRN #12 tab 05/21/19 tablet (Imitrex) meclizine 25 mg tablet 25 mg PO TID PRN #10 tab 05/08/21 ondansetron 4 mg disintegrating 4 mg PO Q8H PRN #10 tab 05/08/21 tablet Allergies Allergy/AdvReac Type Severity Reaction Status Date / Time codeine [CODEINE] AdvReac Intermediate nausea Verified 05/08/21 10:26 pantoprazole [PANTOPRAZOLE] AdvReac Intermediate NAUSEA, Verified 05/08/21 10:26 TINGLING IN HANDS AND FEET Review of Systems Review of Systems Narrative: GENERAL: Denies chills, fatigue, malaise, fever, sweats, travel HEENT: Denies sinus pain, ear pain, sore throat, difficulty swallowing, neck pain RESPIRATORY: Denies dyspnea, cough, wheezing, hemoptysis, sputum. CARDIOVASCULAR: Denies chest pain, palpitations, orthopnea, edema GASTROINTESTINAL: Denies nausea, vomiting, abdominal pain, diarrhea, constipation, melena. : Denies dysuria, frequency, incontinence, hematuria, urinary retention, flank pain. MUSCULOSKELETAL: Denies weakness, joint pain, or bony pain SKIN: No rash, no erythema, no pruritus NEUROLOGIC: See HPI PSYCHIATRIC: No concerning psychosocial issues. 12 point review of systems is negative except for those stated above and HPI Patient History Medical History (Updated 05/08/21 @ 12:36 by Linda Corrales DO) [employer] ancestry (04/16/15) Diarrhea Essential hypertension (05/17/16) Generalized anxiety disorder (06/13/16) Generalized muscle ache Idiopathic peripheral neuropathy (10/29/10) Major depression Memory loss (10/29/10) Migraine without aura and without status migrainosus, not intractable (10/29/10) Mild intermittent asthma without complication (10/29/10) Mixed hyperlipidemia (10/29/10) Recurrent major depressive disorder, in partial remission (10/29/10) Rheumatoid arthritis involving multiple sites with positive rheumatoid factor (10/29/10) Rhinorrhea Type 2 diabetes mellitus with hyperglycemia (04/28/16) UTI (urinary tract infection) UTI (urinary tract infection) Yeast infection Surgical History History of carpal tunnel repair Status post laparoscopic cholecystectomy Status post laparoscopy Social History Smoking Status: Never smoker Smoking Status: Never smoker Exam Initial Vital Signs Initial Vital Signs: Vital Signs Pulse Oximetry 100 05/08/21 10:17 GENERAL: Alert well-appearing 65-year-old female in no acute distress. HEENT: Head atraumatic,EOMI, pupils reactive, no nystagmus face symmetric, moist mucous membranes CARDIOVASCULAR: Regular rate and rhythm without murmurs, rubs or gallops. RESPIRATORY: Breath sounds equal bilaterally, no wheezes rales or rhonchi. ABDOMEN: Soft, nontender. Normoactive bowel sounds all 4 quadrants. No guarding or rebound. EXTREMITIES: Normal range of motion, no clubbing or edema. Neurovascularly intact NEUROLOGICAL: Alert and oriented x4.Normal gait and speech. Cranial nerves II through XII grossly intact. Good [id number], good [id number], strength equal bilaterally, no dysarthria or aphasia, sensation in tact to soft touch bilaterally, no visual changes, no facial droop SKIN: Warm, dry, no laceration, no petechiae, no rashes or lesions. Scores NIH Stroke Scale Level of Conciousness: Alert, keenly responsive Ask month/age: Answers both questions correctly. Open/close eyes, close hand: Performs both tasks correctly Best gaze horizontal: Normal Visual davis: No visual loss Facial palsy: Normal symetrical movement Left arm drift: No drift for full 10 sec Right arm drift: No drift for full 10 sec Left leg drift: No drift for full 5 sec Right leg drift: No drift for full 5 sec Limb ataxia: Absent Sensory on face/arms/legs: Normal, no sensory loss Best language: No aphasia, normal Dysarthria: Normal Extinction or inattention: No abnormality Total NIH Stroke scale score: 0 Course Orders Ordered: ED Orders 05/08/21 10:00 Complete Blood Count AUTO DIFF Stat Comprehensive Metabolic Panel Stat D Dimer Stat Troponin & CK Cardiac Panel Stat 05/08/21 10:38 EKG-12 Lead Stat Discontinued Medications Sodium Chloride (Normal Saline 0.9%) 1,000 mls @ 1,000 mls/hr IV BOLUS ONE Stop: 05/08/21 13:26 Last Admin: 05/08/21 12:46 Dose: Not Given Documented by: RAVINDRA Meclizine HCl (Meclizine Hcl 12.5 Mg Tablet) 25 mg PO NOW ONE Stop: 05/08/21 10:39 Last Admin: 05/08/21 10:59 Dose: 25 mg Documented by: OBDULIA Midazolam HCl (Midazolam 5 Mg/Ml Vial) 1 mg IV NOW ONE Stop: 05/08/21 12:26 Last Admin: 05/08/21 12:47 Dose: Not Given Documented by: RAVINDRA Ondansetron HCl (Ondansetron 4 Mg/2 Ml Inj) 4 mg IV NOW ONE Stop: 05/08/21 10:39 Last Admin: 05/08/21 10:59 Dose: 4 mg Documented by: OBDULIA Vital Signs Vital signs: Vital Signs - 8 hr 05/08/21 10:30 05/08/21 11:03 05/08/21 11:30 Pulse Rate 83 76 77 Respiratory Rate 19 16 18 Blood Pressure 128/61 Pulse Oximetry 100 98 100 05/08/21 12:00 Pulse Rate 72 Respiratory Rate 17 Blood Pressure 117/58 L Pulse Oximetry 100 MDM - Dizziness Lab Data Result diagrams: 05/08/21 10:00 05/08/21 10:00 Labs: Lab Results 05/08/21 05/08/21 05/08/21 Range/Units 10:00 10:00 10:00 WBC 6.1 (4.5-11.0) X10^3/uL RBC 4.32 (4.0-5.2) X10^6/uL Hgb 13.4 (12.0-16.0) g/dL Hct 40.0 (36-46) % MCV 92.7 (80-100) fL MCH 31.2 (26-34) PG MCHC 33.6 (30-36) % RDW 13.5 (11.6-14.8) % Plt Count 217 (150-400) X10^3/uL Neut % (Auto) 44.1 L (50-75) % Lymph % (Auto) 47.1 H (25-40) % Lyon % (Auto) 7.2 (3-14) % Eos % (Auto) 0.9 L (2-4) % Baso % (Auto) 0.7 (0-2) % Neut # (Auto) 2700 (8693-6606) /uL Lymph # (Auto) 2900 (4708-5946) /uL Lyon # (Auto) 400 (0-900) /uL Eos # (Auto) 100 (0-450) /uL Baso # (Auto) 0 (0-100) /uL D-Dimer 230 (<230) ng/mL Sodium 142 (137-145) mmol/L Potassium 4.1 (3.4-5.1) mmol/L Chloride 110 H (98-107) mmol/L Carbon Dioxide 24 (22-32) mmol/L BUN 16 (7-17) mg/dL Creatinine 0.72 (0.52-1.04) mg/dL Estimated GFR > 60.0 (>60) mL/min BUN/Creatinine Ratio 22.2 H (6-22) Glucose 136 H (80-110) mg/dL Calcium 9.7 (8.4-10.2) mg/dL Total Bilirubin 0.6 (0.2-1.3) mg/dL AST 28 (14-36) IU/L ALT 21 (<35) IU/L Alkaline Phosphatase 74 (38-126) U/L Total Creatine Kinase (30-135) U/L CK-MB (CK-2) CK-MB (CK-2) Rel Index Troponin I (0.01-0.034) ng/mL Total Protein 7.3 (6.3-8.2) g/dL Albumin 4.3 (3.5-5.0) g/dL Globulin 3.0 (1.7-4.1) g/dL Albumin/Globulin Ratio 1.4 (1.0-2.8) 05/08/21 Range/Units 10:00 WBC (4.5-11.0) X10^3/uL RBC (4.0-5.2) X10^6/uL Hgb (12.0-16.0) g/dL Hct (36-46) % MCV (80-100) fL MCH (26-34) PG MCHC (30-36) % RDW (11.6-14.8) % Plt Count (150-400) X10^3/uL Neut % (Auto) (50-75) % Lymph % (Auto) (25-40) % Lyon % (Auto) (3-14) % Eos % (Auto) (2-4) % Baso % (Auto) (0-2) % Neut # (Auto) (1583-2687) /uL Lymph # (Auto) (4935-2269) /uL Lyon # (Auto) (0-900) /uL Eos # (Auto) (0-450) /uL Baso # (Auto) (0-100) /uL D-Dimer (<230) ng/mL Sodium (137-145) mmol/L Potassium (3.4-5.1) mmol/L Chloride (98-107) mmol/L Carbon Dioxide (22-32) mmol/L BUN (7-17) mg/dL Creatinine (0.52-1.04) mg/dL Estimated GFR (>60) mL/min BUN/Creatinine Ratio (6-22) Glucose (80-110) mg/dL Calcium (8.4-10.2) mg/dL Total Bilirubin (0.2-1.3) mg/dL AST (14-36) IU/L ALT (<35) IU/L Alkaline Phosphatase (38-126) U/L Total Creatine Kinase 52 (30-135) U/L CK-MB (CK-2) TNP CK-MB (CK-2) Rel Index TNP Troponin I < 0.012 (0.01-0.034) ng/mL Total Protein (6.3-8.2) g/dL Albumin (3.5-5.0) g/dL Globulin (1.7-4.1) g/dL Albumin/Globulin Ratio (1.0-2.8) ECG Data Interpretation: Normal sinus rhythm rate [address] changes no T-wave inversions p.r. interval 152 QRS 78 QTC 434 MDM Narrative Medical decision making narrative: Patient's symptoms are definitely worse with movement. Once she sits up she is able to steady herself and walk to the restroom. She is quite talkative. She was given meclizine which seemed to help. Discussed with her possible need for CT angio since symptoms have been ongoing for 4 days and seems to be getting worse. However at this time she declines having a CT and feels good enough to go home. Discussed with her symptoms are most consistent with vertigo he is given prescription of meclizine for home. If symptoms continue or worsen she does healing imaging. She did have a noncontrast head CT 1 year ago that was normal. He states the neuropathy in her feet is chronic and ongoing she typically is numbness in her right foot but no actually has numbness just in her left toes which is new. At this time this does not seem to be stroke related probably more related to her neuropathy. Discharge Plan Departure Patient Disposition: Home Clinical Impression: Vertigo Instructions: DI for Vertigo Activity Restrictions/Additional Instructions: *You have been diagnosed with vertigo *What to do: Your symptoms are most consistent with vertigo however MRI and CT may be indicated if you have continuing symptoms to rule out stroke. *Continue to take medications as directed--> [facility] Me[facility]iz[facility] 25 mg 3 times a day if needed for dizziness Zofran 4 mg every 8 hours if needed for nausea or vomiting *Follow up with your primary care provider in 2-3 days or call [phone] *Return to ER if you should have worsening dizziness headaches numbness tingling weakness persistent vomiting or any new, worsening or concerning symptoms Prescriptions: New meclizine 25 mg tablet 25 mg PO TID PRN (Reason: dizziness) Qty: 10 0RF ondansetron 4 mg tablet,disintegrating 4 mg PO Q8H PRN (Reason: nausea and vomiting) Qty: 10 0RF No Action Glucose: Test Strips 0 str Qty: 30 3RF insulin aspart U-100 [Novolog Flexpen U-100 Insulin] 100 UNIT/1 ML insulin pen 0 SQ TIDP PRNQty: 15 3RF insulin glargine [Lantus Solostar U-100 Insulin] 100 UNIT/1 ML insulin pen 40 - 45 unit SQ Q DAY Qty: 15 3RF ibuprofen [Advil] 200 MG tablet 200 mg PO Q4HP PRNQty: 0 0RF gabapentin 800 mg tablet 800 mg PO TID Qty: 90 5RF Cordell 0 dev Qty: 150 PRNRF topiramate [Topamax] 100 mg tablet 100 mg PO .COMPLEX Qty: 60 1RF Rx Instructions: 100 mg PO twice a day, along with the 50 MG for a total of 150 MG twice a day.; nadolol 40 mg tablet 40 mg PO DAILY Qty: 30 11RF fremanezumab-vfrm [Ajovy Syringe] 225 mg/1.5 mL syringe See Rx Instructions .ROUTE .COMPLEX Qty: 1.5 2RF Dose Instruction: inject 1 AND 1/2 milliliter subcutaneously every month Rx Instructions: inject 1 AND 1/2 milliliter subcutaneously every month sumatriptan 20 mg/actuation spray,non-aerosol 20 mg NASAL ONCE Qty: 6 1RF Rx Instructions: into one nostril; if headache remains, may repeat dose into other nostril once after at least 2 hours sumatriptan succinate [Imitrex] 100 mg tablet 100 mg PO .COMPLEX PRN (Reason: migraine headache) Qty: 12 1RF Rx Instructions: 100 mg PO 1 at onset, may repeat after 2 hours PRN; Referrals: Serge Dudley MD [Primary Care Provider] -
[2021-05-08] MEDS: ONDANSETRON 4 MG/2 ML INJ IV (10:59)
[2021-05-08] MEDS: MECLIZINE HCL 12.5 MG TABLET 25 MG PO (10:59)
[2021-05-08 11:05] LABS: Add Manual Diff / Slide Review NO; Basophils Absolute Auto 0 /uL (0-100); Basophils Percent Auto 0.7 % (0-2); Eosinophils Absolute Auto 100 /uL (0-450); Eosinophils Percent Auto 0.9 % (2-4); Hemoglobin 13.4 g/dL (12.0-16.0); Lymphocytes Absolute Auto 2900 /uL (1100-4500); Lymphocytes Percent Auto 47.1 % (25-40); Mean Corpuscular HGB Conc 33.6 % (30-36); Mean Corpuscular Hemoglobin 31.2 PG (26-34); Mean Corpuscular Volume 92.7 fL (80-100); Monocytes Absolute Auto 400 /uL (0-900); Monocytes Percent Auto 7.2 % (3-14); Neutrophils Absolute Auto 2700 /uL (1500-7000); Neutrophils Percent Auto 44.1 % (50-75); Platelet Count 217 X10^3/uL (150-400); Red Blood Cell Count 4.32 X10^6/uL (4.0-5.2); Red Cell Distribution Width 13.5 % (11.6-14.8); White Blood Cell Count 6.1 X10^3/uL (4.5-11.0)
[2021-05-08 11:11] LABS: D Dimer 230 ng/mL (<230)
[2021-05-08 11:15] LABS: Alanine Aminotransferase 21 IU/L (<35); Albumin 4.3 g/dL (3.5-5.0); Albumin Globulin Ratio 1.4 (1.0-2.8); Alkaline Phosphatase 74 U/L (38-126); Aspartate Aminotransferase 28 IU/L (14-36); BUN Creatinine Ratio 22.2 (6-22); Bilirubin Total 0.6 mg/dL (0.2-1.3); Blood Urea Nitrogen 16 mg/dL (7-17); Calcium 9.7 mg/dL (8.4-10.2); Carbon Dioxide 24 mmol/L (22-32); Chloride 110 mmol/L (98-107); Estimated Glomerular Filt Rate > 60.0 mL/min (>60); Glucose 136 mg/dL (80-110); HEMOLYSIS 22 (0-50); Potassium 4.1 mmol/L (3.4-5.1); Sodium 142 mmol/L (137-145); Total Protein 7.3 g/dL (6.3-8.2)
[2021-05-08 11:29] LABS: Creatine Kinase 52 U/L (30-135)
[2021-05-08 11:42] LABS: Troponin I < 0.012 ng/mL (0.01-0.034)
== END 2021-05-08 12:46 | disposition home or self-care (01) ==
PROVIDERS: Emergency Provider Emergency Medicine; PCP Internal Medicine
DX: R42 Dizziness and giddiness (principal)
CPT/HCPCS: 80053; 82550; 84484; 85025; 85379; 93005; 93010; 96374; 99284; J2405

== ENCOUNTER → 2021-11-08 16:21 | Outpatient (CLI) | payer OTHER, SELFPAY ==
--- NOTE | 2021-11-08 16:22 | DI.US.S_ITS ---
PROCEDURE: US PELVIC COMPLETE INDICATIONS: POST MENOPAUSAL BLEEDING TECHNIQUE: Real-time scanning was performed of the pelvic organs, with image documentation. Additional endovaginal scanning was necessary due to incomplete visualization of the adnexal and endometrial structures by transabdominal scanning. COMPARISON: [facility], US, US PELVIC COMPLETE, 04/29/2019, 13:44. [facility], US, US PELVIC COMPLETE WITH TRANSVAGINAL, 06/01/2020, 17:17. FINDINGS: Uterus: Uterus is anteverted and normal in size at 6.4 x 2.8 x 4.3 cm. The myometrium is heterogeneous. The endometrium measures 6.4 mm combined thickness. Microcystic changes of the endometrial redemonstrated. Ovaries: Right ovary measures 1.5 x 1.1 x 1.1 cm and the left 1.7 x 1.2 x 1.4 cm. Several nonshadowing punctate echogenic foci associated with the right ovary likely of no clinical significance. Other: No pathologic free abdominal or pelvic fluid. IMPRESSION: 1. Mild thickening of the endometrial complex with microcystic changes. Underlying neoplasm cannot be excluded. Consider endometrial biopsy for pathologic diagnosis. 2. Punctate echogenic foci associated with the right ovary likely of no clinical significance. We strive to produce accurate, complete, and clear reports of imaging services. To assist us in improving patient care, this report was composed using standard report templates and voice recognition software. Therefore, it may contain abnormal punctuation, insertions and/or omissions. Occasional wrong-word or sound-alike substitutions may occur. Though we review the report and make efforts to correct it, we do recommend that the report be read carefully in proper context to recognize any text inaccuracies. Dictated by: Damon ROGERS Interpreted: Chivo Carney MD on 11/09/2021 at 13:33 Transcribed by: OBDULIA on 11/09/2021 at 13:36 Approved by: Chivo Carney M.D. on 11/09/2021 at 14:04
== END ==
PROVIDERS: PCP Internal Medicine; Referring Provider Internal Medicine; Visit Provider Internal Medicine
DX: N95.0 Postmenopausal bleeding (principal); R93.89 Abnormal findings on diagnostic imaging of other specified body structures
CPT/HCPCS: 76830; 76856

== ENCOUNTER 2022-05-17 13:43 | Emergency (ER) | payer OTHER, SELFPAY ==
[2022-05-17 13:48] VITALS: BP 134/64; PULSE 73; RESP 15; TEMP 36.4; O2SAT 100; BMI 27.8
--- NOTE | 2022-05-17 14:15 | DI.CT.S_ITS ---
PROCEDURE: CT HEAD/BRAIN WO CON INDICATIONS: fall, head injury, altered TECHNIQUE: Noncontrast 4.5 mm thick angled axial sections acquired from the foramen magnum to the vertex, with coronal and sagittal reformats. For radiation dose reduction, the following was used: automated exposure control, adjustment of mA and/or kV according to patient size. COMPARISON: [facility], CT, CT HEAD/BRAIN WO CON, 04/02/2020, 13:06. FINDINGS: Image quality: Excellent. CSF spaces: Basal cisterns are patent. No extra-axial fluid collections. Ventricles are normal in size and shape. Brain: No midline shift. No intracranial masses or hemorrhage. Cardozo-white matter interface is normal. Skull and face: Calvarium and visualized facial bones are intact, without suspicious lesions. Sinuses: Visualized sinuses and mastoids are clear. IMPRESSION: Normal CT brain Approved by: Octavio Castillo M.D. on 05/17/2022 at 14:00
[2022-05-17 15:06] LABS: Add Manual Diff / Slide Review NO; Basophils Absolute Auto 0 /uL (0-100); Basophils Percent Auto 0.4 % (0-2); Eosinophils Absolute Auto 100 /uL (0-450); Hematocrit 43.1 % (36-46); Hemoglobin 14.5 g/dL (12.0-16.0); Lymphocytes Absolute Auto 3100 /uL (1100-4500); Mean Corpuscular HGB Conc 33.7 % (30-36); Mean Corpuscular Hemoglobin 31.7 PG (26-34); Mean Corpuscular Volume 93.9 fL (80-100); Monocytes Absolute Auto 300 /uL (0-900); Monocytes Percent Auto 4.9 % (3-14); Neutrophils Absolute Auto 3100 /uL (1500-7000); Neutrophils Percent Auto 46.7 % (50-75); Platelet Count 191 X10^3/uL (150-400); Red Blood Cell Count 4.59 X10^6/uL (4.0-5.2); Red Cell Distribution Width 13.7 % (11.6-14.8); White Blood Cell Count 6.7 X10^3/uL (4.5-11.0)
[2022-05-17 15:20] LABS: Alanine Aminotransferase 28 IU/L (<35); Albumin 4.3 g/dL (3.5-5.0); Albumin Globulin Ratio 1.4 (1.0-2.8); Alkaline Phosphatase 77 U/L (38-126); Aspartate Aminotransferase 24 IU/L (14-36); BUN Creatinine Ratio 21.8 (6-22); Bilirubin Total 0.7 mg/dL (0.2-1.3); Blood Urea Nitrogen 17 mg/dL (7-17); Calcium 9.1 mg/dL (8.4-10.2); Carbon Dioxide 20 mmol/L (22-32); Chloride 111 mmol/L (98-107); Estimated Glomerular Filt Rate > 60 mL/min (>60); Globulin 3.1 g/dL (1.7-4.1); Glucose 105 mg/dL (80-110); HEMOLYSIS < 15 (0-50); Lipase 69 U/L (23-300); Magnesium 1.9 mg/dL (1.6-2.3); Potassium 3.8 mmol/L (3.4-5.1); Sodium 141 mmol/L (137-145); Total Protein 7.4 g/dL (6.3-8.2)
--- NOTE | 2022-05-17 15:49 | ED_ITS ---
HPI - Fall <Jai Ashraf, DO - Last Filed: 05/18/22 07:26> General Chief Complaint: Fall Stated Complaint: fall last week still having symptons Time Seen by Provider: 05/17/22 14:07 Source: patient Mode of arrival: Ambulatory History of Present Illness HPI Narrative: 66-year-old female nonsmoker with history of hypertension, anxiety, type 2 diabetes, depression, rheumatoid arthritis presents with a chief complaint of some pressured speech and onset sickle speech pattern according to her daughter. Patient states that she is had the speech issues for quite some time but is here for evaluation because her daughter is concerned that it has gotten worse over the past week. About 1 week ago, just prior to this happening she had a mechanical fall much her legs got twisted underneath her and she fell forward striking her head on a dresser. She does not know if she had a loss of consciousness but could have. She denies any headache, blurred vision. She denies any focal neurologic symptoms otherwise such as extremity numbness, tingling or weakness. She denies medication change or dietary change. Related Data Home Medications Medication Instructions Recorded Confirmed ibuprofen 200 mg tablet (Advil) 200 mg PO Q4HP PRN ##0 18 04/08/21 Previous Rx's Medication Instructions Recorded Glucose: Test Strips 0 str ##30 12/03/15 insulin aspart U-100 100 unit/mL 0 SQ TIDP PRN #15 vials 05/18/16 (3 mL) subcutaneous pen (Novolog FlexPen U-100 Insulin aspart) insulin glargine 100 unit/mL (3 40 - 45 unit (0.4 - 0.45 mL) SQ Q 07/03/17 mL) subcutaneous pen (Lantus DAY ##15 Solostar U-100 Insulin) gabapentin 800 mg tablet 800 mg PO TID #90 tabs 10/24/17 Engadine 0 dev ##150 11/09/17 topiramate 100 mg tablet (Topamax) 100 mg PO .COMPLEX #60 tabs 12/25/18 nadolol 40 mg tablet 40 mg PO DAILY #30 tabs 03/05/19 fremanezumab-vfrm 225 mg/1.5 mL See Rx Instructions .Route 05/20/19 subcutaneous syringe (Maribell .COMPLEX #1.5 mL Syringe) sumatriptan 20 mg/actuation nasal 20 mg intranasal ONCE #6 ea 05/21/19 spray sumatriptan succinate 100 mg 100 mg PO .COMPLEX PRN migraine 05/21/19 tablet (Imitrex) headache #12 tabs meclizine 25 mg tablet 25 mg PO TID PRN dizziness #10 tabs 05/08/21 ondansetron 4 mg disintegrating 4 mg PO Q8H PRN nausea and 05/08/21 tablet vomiting #10 tabs Allergies Allergy/AdvReac Type Severity Reaction Status Date / Time infliximab [From Remicade] Allergy Verified 05/17/22 13:48 codeine [CODEINE] AdvReac Intermediate nausea Verified 05/17/22 13:48 pantoprazole [PANTOPRAZOLE] AdvReac Intermediate NAUSEA, Verified 05/17/22 13:48 TINGLING IN HANDS AND FEET Review of Systems <Jai Ashraf DO - Last Filed: 05/18/22 07:26> Review of Systems Narrative: GENERAL: Denies chills, fatigue, malaise, fever, sweats. HEENT: Denies sinus pain, ear pain, sore throat, difficulty swallowing, dizziness. RESPIRATORY: Denies dyspnea, cough, wheezing, hemoptysis, sputum. CARDIOVASCULAR: Denies chest pain, palpitations, orthopnea, edema, GASTROINTESTINAL: Denies nausea, vomiting, abdominal pain, diarrhea, constipation, melena. : Denies dysuria, frequency, incontinence, hematuria, urinary retention. MUSCULOSKELETAL: denies weakness, joint pain, or bony pain SKIN: Denies rash, skin lesions, or other NEUROLOGIC: See HPI PSYCHIATRIC: No concerning psychosocial issues. 12 point review of systems is negative except for those stated above Patient History <Jai Ashraf DO - Last Filed: 05/18/22 07:26> Medical History Ashkenazi Hindu ancestry (04/16/15) Diarrhea Essential hypertension (05/17/16) Generalized anxiety disorder (06/13/16) Generalized muscle ache Idiopathic peripheral neuropathy (10/29/10) Major depression Memory loss (10/29/10) Migraine without aura and without status migrainosus, not intractable (10/29/10) Mild intermittent asthma without complication (10/29/10) Mixed hyperlipidemia (10/29/10) Recurrent major depressive disorder, in partial remission (10/29/10) Rheumatoid arthritis involving multiple sites with positive rheumatoid factor (10/29/10) Rhinorrhea Type 2 diabetes mellitus with hyperglycemia (04/28/16) UTI (urinary tract infection) UTI (urinary tract infection) Yeast infection Surgical History History of carpal tunnel repair Status post laparoscopic cholecystectomy Status post laparoscopy Social History Smoking Status: Never smoker Smoking Status: Never smoker Substance Use Type: does not use Exam <Jai Ashraf DO - Last Filed: 05/18/22 07:26> Narrative Exam Narrative: GENERAL: [66] year old patient appears stated age. Well-developed patient, in mild distress. HEAD: Atraumatic. Normocephalic. EYES: Pupils equal round and reactive. Extraocular motions intact. No scleral icterus. No injection or drainage. ENT: Nose without bleeding, purulent drainage. Throat without erythema, tonsillar hypertrophy or exudate. Airway patent. NECK: Trachea midline. Non tender CARDIOVASCULAR: Regular rate and rhythm without murmurs, gallops, or rubs. RESPIRATORY: Clear to auscultation. Breath sounds equal bilaterally. No wheezes, rales, or rhonchi. GASTROINTESTINAL: Abdomen soft, non-tender, nondistended. EXTREMITIES: No edema or joint tenderness. BACK: Nontender without deformity or crepitance. No flank tenderness. NEURO: AOx3. SKIN: No rash or erythema of visible areas NIH Stroke Scale 1a. LOC: Patient is alert and keenly responsive (0) 1b. LOC Questions: Patient answers both LOC questions accurately (0) 1c. LOC Commands: Patient performs both tasks correctly (0) 2. Best Gaze: Normal (0) 3. Visual: No visual loss (0) 4. Facial palsy: Normal symmetrical movements (0) 5. Motor arm: No drift (0) 6. Motor leg: No drift (0) 7. Limb ataxia: Absent (0) 8. Sensory: Normal (0) 9. Best language: No aphasia; normal (0) 10. Dysarthria: Normal (0) 11. Extinction and inattention: No abnormality (0) NIHSS: 0 Initial Vital Signs Initial Vital Signs: Vital Signs Temperature 97.6 F 05/17/22 13:48 Pulse Rate 73 05/17/22 13:48 Respiratory Rate 15 05/17/22 13:48 Blood Pressure 134/64 05/17/22 13:48 Pulse Oximetry 100 05/17/22 13:48 Oxygen Delivery Method 05/17/22 13:48 <Jean-Paul Browne DO - Last Filed: 05/18/22 01:55> Initial Vital Signs Initial Vital Signs: Vital Signs Temperature 97.6 F 05/17/22 13:48 Pulse Rate 73 05/17/22 13:48 Respiratory Rate 15 05/17/22 13:48 Blood Pressure 134/64 05/17/22 13:48 Pulse Oximetry 100 05/17/22 13:48 Oxygen Delivery Method 05/17/22 13:48 Course <Jai Ashraf DO - Last Filed: 05/18/22 07:26> Orders Ordered: ED Orders 05/17/22 14:15 CT head/brain wo con Stat 05/17/22 14:53 Complete Blood Count AUTO DIFF Stat Comprehensive Metabolic Panel Stat Lipase Stat Magnesium Stat TSH w/ Reflex to FT4 Stat 05/17/22 16:21 MR head/brain wo con Stat Vital Signs Vital signs: Vital Signs - 8 hr 05/17/22 18:54 Pulse Rate 74 Blood Pressure 138/75 Pulse Oximetry 96 Oxygen Delivery Method Room Air <Jean-Paul Browne DO - Last Filed: 05/18/22 01:55> Orders Ordered: ED Orders 05/17/22 14:15 CT head/brain wo con Stat 05/17/22 14:53 Complete Blood Count AUTO DIFF Stat Comprehensive Metabolic Panel Stat Lipase Stat Magnesium Stat TSH w/ Reflex to FT4 Stat 05/17/22 16:21 MR head/brain wo con Stat Vital Signs Vital signs: Vital Signs - 8 hr 05/17/22 18:54 Pulse Rate 74 Blood Pressure 138/75 Pulse Oximetry 96 Oxygen Delivery Method Room Air MDM - Fall <Jai Ashraf, DO - Last Filed: 05/18/22 07:26> Lab Data 05/17/22 14:53 05/17/22 14:53 Labs: Lab Results 05/17/22 05/17/22 05/17/22 Range/Units 14:53 14:53 14:53 WBC 6.7 (4.5-11.0) X10^3/uL RBC 4.59 (4.0-5.2) X10^6/uL Hgb 14.5 (12.0-16.0) g/dL Hct 43.1 (36-46) % MCV 93.9 (80-100) fL MCH 31.7 (26-34) PG MCHC 33.7 (30-36) % RDW 13.7 (11.6-14.8) % Plt Count 191 (150-400) X10^3/uL Neut % (Auto) 46.7 L (50-75) % Lymph % (Auto) 47.0 H (25-40) % [place] % (Auto) 4.9 (3-14) % Eos % (Auto) 1.0 L (2-4) % Baso % (Auto) 0.4 (0-2) % Neut # (Auto) 3100 (7050-5947) /uL Lymph # (Auto) 3100 (9040-3119) /uL [place] # (Auto) 300 (0-900) /uL Eos # (Auto) 100 (0-450) /uL Baso # (Auto) 0 (0-100) /uL Sodium 141 (137-145) mmol/L Potassium 3.8 (3.4-5.1) mmol/L Chloride 111 H (98-107) mmol/L Carbon Dioxide 20 L (22-32) mmol/L BUN 17 (7-17) mg/dL Creatinine 0.78 (0.52-1.04) mg/dL Estimated GFR > 60 (>60) mL/min BUN/Creatinine Ratio 21.8 (6-22) Glucose 105 (80-110) mg/dL Calcium 9.1 (8.4-10.2) mg/dL Magnesium 1.9 (1.6-2.3) mg/dL Total Bilirubin 0.7 (0.2-1.3) mg/dL AST 24 (14-36) IU/L ALT 28 (<35) IU/L Alkaline Phosphatase 77 (38-126) U/L Total Protein 7.4 (6.3-8.2) g/dL Albumin 4.3 (3.5-5.0) g/dL Globulin 3.1 (1.7-4.1) g/dL Albumin/Globulin Ratio 1.4 (1.0-2.8) Lipase 69 (23-300) U/L TSH 1.56 (0.47-4.68) uIU/mL Urine Dip Bedside Urine Glucose Negative Bedside Urine Bilirubin - Negative Bedside Urine Ketone - Negative Urine Specific [place] 1.015 Bedside Urine Occult Blood - Negative Bedside Urine pH 6.0 Bedside Urine Protein - Negative Bedside Urine Urobilinogen - Negative Bedside Urine Nitrite - Negative Bedside Urine Leukocytes - Negative Esterase MDM Narrative Medical decision making narrative: CC: 66-year-old female with difficulty in findings speech upwards of 1 year, likely worse past week since a fall with head injury Complicating co-morbidities: Age, diabetes Data collected from: Patient Medical records reviewed: Prior ED visits noted Differential considered, but not limited to: stroke, concussion, early dementia versus Exam documented above, pertinent findings include: Lab Test results independently reviewed as above. Pertinent findings: No significant abnormal findings requiring specific intervention Independently reviewed EKG as above Imaging studies independently reviewed:head unremarkable Scores Used: NIHSS Re-evaluations: Discussion: Disposition: see below, along with detailed discharge instructions that have been reviewed with patient as well as indications for ED re-evaluation and additional outpatient follow up <Jean-Paul Browne, DO - Last Filed: 05/18/22 01:55> Lab Data Labs: Lab Results 05/17/22 05/17/22 05/17/22 Range/Units 14:53 14:53 14:53 WBC 6.7 (4.5-11.0) X10^3/uL RBC 4.59 (4.0-5.2) X10^6/uL Hgb 14.5 (12.0-16.0) g/dL Hct 43.1 (36-46) % MCV 93.9 (80-100) fL MCH 31.7 (26-34) PG MCHC 33.7 (30-36) % RDW 13.7 (11.6-14.8) % Plt Count 191 (150-400) X10^3/uL Neut % (Auto) 46.7 L (50-75) % Lymph % (Auto) 47.0 H (25-40) % [place] % (Auto) 4.9 (3-14) % Eos % (Auto) 1.0 L (2-4) % Baso % (Auto) 0.4 (0-2) % Neut # (Auto) 3100 (1649-9533) /uL Lymph # (Auto) 3100 (0948-2144) /uL [place] # (Auto) 300 (0-900) /uL Eos # (Auto) 100 (0-450) /uL Baso # (Auto) 0 (0-100) /uL Sodium 141 (137-145) mmol/L Potassium 3.8 (3.4-5.1) mmol/L Chloride 111 H (98-107) mmol/L Carbon Dioxide 20 L (22-32) mmol/L BUN 17 (7-17) mg/dL Creatinine 0.78 (0.52-1.04) mg/dL Estimated GFR > 60 (>60) mL/min BUN/Creatinine Ratio 21.8 (6-22) Glucose 105 (80-110) mg/dL Calcium 9.1 (8.4-10.2) mg/dL Magnesium 1.9 (1.6-2.3) mg/dL Total Bilirubin 0.7 (0.2-1.3) mg/dL AST 24 (14-36) IU/L ALT 28 (<35) IU/L Alkaline Phosphatase 77 (38-126) U/L Total Protein 7.4 (6.3-8.2) g/dL Albumin 4.3 (3.5-5.0) g/dL Globulin 3.1 (1.7-4.1) g/dL Albumin/Globulin Ratio 1.4 (1.0-2.8) Lipase 69 (23-300) U/L TSH 1.56 (0.47-4.68) uIU/mL Urine Dip Bedside Urine Glucose Negative Bedside Urine Bilirubin - Negative Bedside Urine Ketone - Negative Urine Specific [place] 1.015 Bedside Urine Occult Blood - Negative Bedside Urine pH 6.0 Bedside Urine Protein - Negative Bedside Urine Urobilinogen - Negative Bedside Urine Nitrite - Negative Bedside Urine Leukocytes - Negative Esterase Imaging Data CT scan - head: Radiologist's Impression: Unremarkable head CT Brain MRI: Radiologist's Impression: No acute findings MDM Narrative Medical decision making narrative: CC: 66-year-old female with difficulty in findings speech upwards of 1 year, likely worse past week since a fall with head injury Complicating co-morbidities: Age, diabetes Data collected from: Patient Medical records reviewed: Prior ED visits noted Differential considered, but not limited to: stroke, concussion, early dementia versus Exam documented above, pertinent findings include: Lab Test results independently reviewed as above. Pertinent findings: No significant abnormal findings requiring specific intervention Independently reviewed EKG as above Imaging studies independently reviewed:head unremarkable Scores Used: NIHSS Re-evaluations: Discussion: Disposition: see below, along with detailed discharge instructions that have been reviewed with patient as well as indications for ED re-evaluation and additional outpatient follow up Dr browne: Received turned over. Reviewed patient's history and physical exam and workup up to this point. Patient's head CT was unremarkable. MRI was unremarkable. It appears that she has had symptoms of memory issues for the past year. She has seen her primary doctor about this. We did discuss that we could not diagnosed dementia off of an MRI. There does not appear to be any acute findings. Will discharge patient home to follow-up with primary doctor to discuss referral to see Neurology or potential neuropsychology. She was given return precautions. She expressed understanding and agreement. Discharge Plan Departure Patient Disposition: Home Clinical Impression: Memory changes Instructions: How to Prevent Falls Activity Restrictions/Additional Instructions: I do recommend that you continue to take all of your medications as directed. I also recommend that you talk with your primary doctor about the indications for referral to see a neurologist or a neuropsychologist. Return to the emergency department for any new symptoms. Prescriptions: No Action Glucose: Test Strips 0 str Qty: 30 3RF insulin aspart U-100 [Novolog FlexPen U-100 Insulin] 100 UNIT/1 ML insulin pen 0 SQ TIDP PRNQty: 15 3RF insulin glargine [Lantus Solostar U-100 Insulin] 100 UNIT/1 ML insulin pen 40 - 45 unit SQ Q DAY Qty: 15 3RF ibuprofen [Advil] 200 MG tablet 200 mg PO Q4HP PRNQty: 0 gabapentin 800 mg tablet 800 mg PO TID Qty: 90 5RF Engadine 0 dev Qty: 150 PRNRF topiramate [Topamax] 100 mg tablet 100 mg PO .COMPLEX Qty: 60 1RF Rx Instructions: 100 mg PO twice a day, along with the 50 MG for a total of 150 MG twice a day.; nadolol 40 mg tablet 40 mg PO DAILY Qty: 30 11RF fremanezumab-vfrm [Ajovy Syringe] 225 mg/1.5 mL syringe See Rx Instructions .ROUTE .COMPLEX Qty: 1.5 2RF Dose Instruction: inject 1 AND 1/2 milliliter subcutaneously every month Rx Instructions: inject 1 AND 1/2 milliliter subcutaneously every month sumatriptan 20 mg/actuation spray,non-aerosol 20 mg NASAL ONCE Qty: 6 1RF Rx Instructions: into one nostril; if headache remains, may repeat dose into other nostril once after at least 2 hours sumatriptan succinate [Imitrex] 100 mg tablet 100 mg PO .COMPLEX PRN (Reason: migraine headache) Qty: 12 1RF Rx Instructions: 100 mg PO 1 at onset, may repeat after 2 hours PRN; meclizine 25 mg tablet 25 mg PO TID PRN (Reason: dizziness) Qty: 10 0RF ondansetron 4 mg tablet,disintegrating 4 mg PO Q8H PRN (Reason: nausea and vomiting) Qty: 10 0RF Referrals: Katya Sahni MD [Primary Care Provider] - Stand Alone Forms: Patient Portal/API
[2022-05-17 15:50] LABS: TSH w/ Reflex to FT4 1.56 uIU/mL (0.47-4.68)
--- NOTE | 2022-05-17 16:21 | DI.MRI.S_ITS ---
PROCEDURE: MR HEAD/BRAIN WO CON INDICATIONS: trouble with word finding TECHNIQUE: Non-contrast axial T1 spin echo, axial T2 fast spin echo, sagittal and axial FLAIR, coronal T2 fast spin echo, axial gradient echo, axial diffusion and ADC through the brain. COMPARISON: [facility], MR, STROKE PROTOCOL, 09/01/2011, 7:30. [facility], CT, CT HEAD/BRAIN WO CON, 05/17/2022, 14:13. FINDINGS: Image quality: This examination is limited by involuntary motion artifact. CSF spaces: Ventricles appear symmetric in size and shape. Basal cisterns are patent. No extra-axial fluid collections. Brain: No intracranial bleeds or mass effects. There is cerebral volume loss for age. There are periventricular and deep white matter chronic small vessel ischemic changes. Brainstem appears normal. Diffusion-weighted images show no acute ischemic insults. No chronic ischemic insults. Normal intravascular flow voids are present. Skull and face: Calvarial bone marrow is normal in signal. Orbits are normal. Sinuses: Sinuses and mastoids are clear. IMPRESSION: No findings of acute or subacute infarction can be seen. Dictated by: Adarsh Elizabeth M.D. on 05/17/2022 at 17:20 Approved by: Adarsh Elizabeth M.D. on 05/17/2022 at 17:25
[2022-05-17 17:03] VITALS: BP 136/77; PULSE 74; O2SAT 96
[2022-05-17 18:54] VITALS: BP 138/75; PULSE 74; O2SAT 96
== END 2022-05-17 18:54 | disposition home or self-care (01) ==
PROVIDERS: Emergency Medicine; Emergency Provider Emergency Medicine; PCP Internal Medicine
DX: R41.3 Other amnesia (principal); S09.90XA Unspecified injury of head, initial encounter; W18.30XA Fall on same level, unspecified, initial encounter
CPT/HCPCS: 36415; 70450; 70551; 80053; 81003; 83690; 83735; 84443; 85025; 99283; 99284

== ENCOUNTER → 2023-01-30 16:02 | Outpatient (CLI) | payer OTHER, SELFPAY ==
--- NOTE | 2023-01-30 16:05 | DI.MRI.S_ITS ---
PROCEDURE: MR BRAIN (IAC) WWO CON INDICATIONS: Sudden hearing loss TECHNIQUE: Noncontrast sagittal T1 spin echo, axial FLAIR, axial gradient echo, axial diffusion and ADC through the brain. Axial thin-slice 3D CISS, coronal TruFISP, axial T1 spin echo with fat saturation through the internal auditory canals. After the administration of contrast, thin slice axial and coronal T1 spin echo with fat saturation through the internal auditory canals, and axial and coronal and sagittal T1 spin echo with fat saturation through the brain. COMPARISON: None. FINDINGS: Image quality: Excellent. Cerebellopontine angles: No cerebellopontine angle masses. Inner ear structures appear normally formed. No suspicious enhancement in the internal auditory canal or along the course of the 7th cranial nerve. CSF spaces: Ventricles are normal in size and shape. No extra-axial fluid collections. Basal cisterns are patent. Brain: No intracranial bleeds or mass effects. Cardozo-white matter interface is intact. No abnormal intracranial enhancement. Diffusion weighted images demonstrate no acute ischemic insults. Brainstem appears normal. Normal intravascular flow voids are present. Skull and face: Calvarial marrow signal is normal. Orbits appear normal. Sinuses: Sinuses and mastoids are clear. IMPRESSION: Normal MRI of the brain and internal auditory canals Approved by: Octavio Castillo M.D. on 01/31/2023 at 18:08
== END ==
PROVIDERS: PCP Internal Medicine; Referring Provider Otolaryngology; Visit Provider Otolaryngology
DX: H90.3 Sensorineural hearing loss, bilateral (principal); H91.22 Sudden idiopathic hearing loss, left ear
CPT/HCPCS: 70553; A9579

== ENCOUNTER → 2023-06-13 12:12 | Outpatient (CLI) | payer OTHER, SELFPAY ==
--- NOTE | 2023-06-13 12:14 | DI.RAD.S_ITS ---
Bone Density Report Name: BRYAN ARCE Age: 68 Sex: Female Ethnicity: White Date of : 1955 Indication: postmenopausal; screening for osteoporosis; Referring Provider: MAGALY OLGUIN Study: Bone densitometry was performed. Exam Date: June 13, 2023 Accession number: [id number] Bone Density: Region BMD T-score Z-score Classification AP Spine(L1, L2, L3) 0.998 -0.2 1.7 Normal Femoral Neck (Left) 0.767 -0.7 0.9 Normal Total Hip (Left) 0.969 0.2 1.6 Normal Femoral Neck (Right) 0.788 -0.5 1.1 Normal Total Hip (Right) 0.948 0.1 1.4 Normal Total Hip Mean 0.959 0.2 1.5 Normal World Health Organization criteria for BMD impression classify patients as: Normal (T-score at or above -1.0), Osteopenia (T-score between -1.0 and -2.5), or Osteoporosis (T-score at or below -2.5). 10-year Fracture Risk: FRAX not reported because: All T-scores for Spine Total, Hip Total, Femoral Neck at or above -1.0 Impression: The patient has normal bone mass. Discussion: BONE DENSITY IS ABOVE THE MINIMUM DESIRABLE LEVEL AT ALL SKELETAL SITES TESTED. This patient's bone mineral density is above the minimum desirable level (T-score -1.0 or better) at all sites measured. The patient should follow a healthful lifestyle (good nutrition with adequate calcium and vitamin D, and appropriate weight-bearing exercise). Follow-Up: Consider repeating this study in 5 years or sooner if there is some new clinical indication. Reported by: REGLA PENG M.D. on 06/13/2023 12:34:00 PM.
== END ==
PROVIDERS: PCP Internal Medicine; Referring Provider Internal Medicine; Visit Provider Internal Medicine
DX: Z13.820 Encounter for screening for osteoporosis (principal); Z78.0 Asymptomatic menopausal state
CPT/HCPCS: 77080

== ENCOUNTER → 2024-01-25 18:17 | Outpatient (CLI) | payer OTHER, SELFPAY | PROVIDERS: PCP Internal Medicine; Visit Provider Physician Assistant Medical | DX: N76.0 Acute vaginitis (principal) | CPT/HCPCS: 87210 ==

== ENCOUNTER 2024-01-29 15:07 | Emergency (ER) | payer OTHER, SELFPAY ==
[2024-01-29 15:18] VITALS: BP 130/62; PULSE 95; RESP 16; TEMP 36.8; O2SAT 95; BMI 28.3
--- NOTE | 2024-01-29 16:13 | PC.NURSE ---
Pt arrived to ED today with increasing thoughts of SI and panic attacks. Pt has been experiencing some significant stress at home. She has been using the suicide hotline and finds them to be very helpful. Pt talks about crushing up her vicodin to make a solution she can drink at the [employer] where her son's name is on the memorial wall. Pt has not carried out any details of plan, but states that she has been having more thoughts of doing so recently. Pt is a&ox4 and appears to have normal thought process and understands that she has resources to help her when she begins to feel anxious or suicidal. Recently started to see a new psychiatrist but her newly rx medication has not come in the mail yet. Pt came to dept today looking for medication to help her until her other rx come in the mail.
[2024-01-29 17:49] VITALS: BP 141/65; PULSE 89; RESP 20; O2SAT 96
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
--- NOTE | 2024-01-29 18:16 | ED_ITS ---
HPI - Psych <Mikey Zamora PA-C - Last Filed: 01/29/24 18:27> General Chief Complaint: Psychiatric Symptoms Stated Complaint: Wants anxiety medication Time Seen by Provider: 01/29/24 16:04 Source: patient Mode of arrival: Family Vehicle History of Present Illness HPI Narrative: 68-year-old female with past medical history depression, anxiety, diabetes, hypertension, hyperlipidemia, migraine presents to the ED requesting anxiety medication for panic attacks. Patient has been seeing a psychiatrist for the last 2 weeks, he agreed to prescribe her alprazolam for panic attacks. However, patient states that the prescription was never sent. Since the psychiatrist is only in the office once a week, patient is unable to contact him and presents to the ED for help with the anxiety. Patient also endorses suicidal ideation with a plan. She states I have some pain pills that she might grind up and take in order to end my life, so I can go be with my son. Patient states that she has not acted on this, and states that she will not do it since she loves her grandchildren too much and does not want to hurt them. Patient does have a suicide attempt 20 years ago for which she was hospitalized. No homicidal ideation. Patient agrees to call the suicide hotline if the suicidal thoughts get to her. Patient was also seen by the social media director who has given her the details for the suicide hotline. Social work has also arranged for the OT team to make daily phone calls to check on the patient at 10:00 a.m. Related Data Home Medications Medication Instructions Recorded Confirmed desvenlafaxine succinate 50 mg 50 mg PO DAILY 01/25/24 01/25/24 tablet,extended release 24 hr ezetimibe 10 mg tablet 10 mg PO DAILY 01/25/24 01/25/24 gabapentin 600 mg tablet mg PO 01/25/24 01/25/24 guanfacine 1 mg tablet 1 mg PO DAILY 01/25/24 01/25/24 hydrocodone 5 mg-acetaminophen 325 1 tab PO BID PRN 01/25/24 01/25/24 mg tablet hydroxychloroquine 200 mg tablet 200 mg PO BID 01/25/24 01/25/24 insulin glargine-yfgn 100 unit/mL unit SUBCUT 01/25/24 01/25/24 (3 mL) subcutaneous pen meloxicam 15 mg tablet 15 mg PO DAILY 01/25/24 01/25/24 nadolol 80 mg tablet 80 mg PO DAILY 01/25/24 01/25/24 ondansetron HCl 4 mg tablet mg PO 01/25/24 01/25/24 semaglutide 2 mg/dose (8 mg/3 mL) mg SUBCUT 01/25/24 01/25/24 subcutaneous pen injector (Ozempic) sertraline 50 mg tablet 50 mg PO DAILY 01/25/24 01/25/24 Previous Rx's Medication Instructions Recorded Glucose: Test Strips 0 str ##30 12/03/15 insulin aspart U-100 100 unit/mL 0 SQ TIDP PRN #15 vials 05/18/16 (3 mL) subcutaneous pen (Novolog FlexPen U-100 Insulin aspart) [place] 0 dev ##150 11/09/17 topiramate 100 mg tablet (Topamax) 100 mg PO .COMPLEX #60 tabs 12/25/18 sumatriptan 20 mg/actuation nasal 20 mg intranasal ONCE #6 ea 05/21/19 spray sumatriptan succinate 100 mg 100 mg PO .COMPLEX PRN migraine 05/21/19 tablet (Imitrex) headache #12 tabs hydroxyzine HCl 25 mg tablet 25 mg PO BID PRN anxiety #7 tabs 01/29/24 Allergies Allergy/AdvReac Type Severity Reaction Status Date / Time infliximab [From Remicade] Allergy Verified 05/17/22 13:48 codeine [CODEINE] AdvReac Intermediate nausea Verified 05/17/22 13:48 pantoprazole [PANTOPRAZOLE] AdvReac Intermediate NAUSEA, Verified 05/17/22 13:48 TINGLING IN HANDS AND FEET Review of Systems <Mikey Zamora PA-C - Last Filed: 01/29/24 18:27> Constitutional Constitutional: Denies chills, Denies fatigue, Denies fever(s), Denies frequent falls, Denies lethargy and Denies weakness Eyes Eyes: Denies change in vision, Denies eye discharge, Denies irritation and Denies loss of vision ENT Ears, Nose, Mouth, and Throat: Denies change in voice, Denies dizziness, Denies neck pain, Denies sore throat and Denies throat swelling Cardiovascular Cardiovascular: Denies chest pain, Denies irregular heart rhythm, Denies lightheadedness, Denies palpitations, Denies dyspnea, Denies dyspnea on exertion and Denies orthopnea Respiratory Respiratory: Denies cough, Denies dyspnea, Denies dyspnea on exertion and Denies wheezing Gastrointestinal Gastrointestinal: Denies abdominal pain, Denies change in bowel habits, Denies diarrhea, Denies nausea and Denies vomiting Musculoskeletal Musculoskeletal: Denies neck pain and Denies numbness Integumentary/Breasts Skin/Breast: Denies pruritus, Denies erythema, Denies rash and Denies wounds Neurologic Neurologic: Denies behavioral changes, Denies confusion, Denies dizziness, Denies frequent falls, Denies loss of vision, Denies numbness and Denies weakness Psychiatric Psychiatric: Reports anxiety, Denies behavioral changes, Denies confusion, Reports depression, Denies homicidal ideation and Reports suicidal ideation Endocrine Endocrine: Denies fatigue, Denies flushing and Denies palpitations Hematologic/Lymphatic Hematologic/Lymphatic: Denies easy bruising Allergic/Immunologic Allergic/Immunologic: Denies urticaria, Denies throat swelling and Denies wheez ing Patient History <Mikey Zamora PA-C - Last Filed: 01/29/24 18:27> Medical History [employer] ancestry (04/16/15) Diarrhea Essential hypertension (05/17/16) Generalized anxiety disorder (06/13/16) Generalized muscle ache Idiopathic peripheral neuropathy (10/29/10) Major depression Memory loss (10/29/10) Migraine without aura and without status migrainosus, not intractable (10/29/10) Mild intermittent asthma without complication (10/29/10) Mixed hyperlipidemia (10/29/10) Recurrent major depressive disorder, in partial remission (10/29/10) Rheumatoid arthritis involving multiple sites with positive rheumatoid factor (10/29/10) Rhinorrhea Type 2 diabetes mellitus with hyperglycemia (04/28/16) UTI (urinary tract infection) UTI (urinary tract infection) Yeast infection Surgical History History of carpal tunnel repair Status post laparoscopic cholecystectomy Status post laparoscopy Social History Smoking Status: Never smoker Smoking Status: Never smoker Substance Use Type: does not use Exam <Mikey Zamora PA-C - Last Filed: 01/29/24 18:27> Narrative Exam Narrative: Const General:?cooperative, healthy appearing, anxious HENMT Head:?normal to inspection Ears:?hearing grossly normal bilaterally Nose:?external nose normal Face and sinus:?normal facial exam and sinuses nontender Mouth:?oral mucosae normal Throat:?posterior oropharynx normal Eyes General:?appearance normal, both eyes and all related structures Neck Neck:?normal visual inspection and no lymphadenopathy noted Resp Effort & Inspection:?normal respiratory effort Auscultation:?clear to auscultation bilaterally Cardio Rate:?regular rate Rhythm:?regular rhythm Neuro General:?patient alert, patient awake and patient oriented x3 Psych Suicidal ideation, anxiety Initial Vital Signs Initial Vital Signs: Vital Signs Temperature 98.3 F 01/29/24 15:18 Pulse Rate 95 H 01/29/24 15:18 Respiratory Rate 16 01/29/24 15:18 Blood Pressure 130/62 01/29/24 15:18 Pulse Oximetry 95 01/29/24 15:18 Oxygen Delivery Method Room Air 01/29/24 15:18 <Ruth Rick DO - Last Filed: 01/30/24 18:23> Initial Vital Signs Initial Vital Signs: Vital Signs Temperature 98.3 F 01/29/24 15:18 Pulse Rate 95 H 01/29/24 15:18 Respiratory Rate 16 01/29/24 15:18 Blood Pressure 130/62 01/29/24 15:18 Pulse Oximetry 95 01/29/24 15:18 Oxygen Delivery Method Room Air 01/29/24 15:18 Course <Mikey Zamora PA-C - Last Filed: 01/29/24 18:27> Orders Ordered: ED Orders 01/29/24 15:44 [place] [facility] [place] Vital Signs Vital signs: Vital Signs - 8 hr 01/29/24 15:18 01/29/24 17:49 Temperature 98.3 F Pulse Rate 95 H 89 Respiratory Rate 16 20 Blood Pressure 130/62 141/65 H Pulse Oximetry 95 96 Oxygen Delivery Method Room Air Room Air <Ruth Rick DO - Last Filed: 01/30/24 18:23> Orders Ordered: ED Orders 01/29/24 15:44 [place] [facility] [place] Vital Signs Vital signs: Vital Signs - 8 hr 01/29/24 15:18 01/29/24 17:49 Temperature 98.3 F Pulse Rate 95 H 89 Respiratory Rate 16 20 Blood Pressure 130/62 141/65 H Pulse Oximetry 95 96 Oxygen Delivery Method Room Air Room Air MDM - Psych <Mikey Zamora PA-C - Last Filed: 01/29/24 18:27> [facility] Narrative Medical decision making narrative: 68-year-old female with past medical history depression, anxiety, diabetes, hypertension, hyperlipidemia, migraine presents to the ED requesting anxiety medication for panic attacks. While patient has expressed suicidal ideation with a plan, she does have sufficient insight and agrees to call the suicide hotline if needed. She is expressed the same assurance to social work as well. Social work has provided the hotline information to the patient. Social work has also arranged for the OT team to call at 10:00 a.m. tomorrow and daily to check on her. Given this and the contract with the patient, it is safe to discharge home today. Patient been prescribed a few pills of hydroxyzine to take if she has a panic attack prior to seeing her psychiatrist. ED return precautions discussed with patient. Patient verbalized understanding. Medical records reviewed: Yes Discharge Plan Departure Patient Disposition: Home Clinical Impression: Anxiety Instructions: DI for Anxiety -- Adult, DI for Suicidal Ideation-Adult Activity Restrictions/Additional Instructions: You were evaluated in the ED today for anxiety. You have been prescribed hydroxyzine to take in the event of a panic attack. It is reassuring that you see your therapist in 4 days. Please call the suicide hotline if you have suicidal thoughts. Return to the ED if you have worsening symptoms, suicidal ideation. Prescriptions: New hydroxyzine HCl 25 mg tablet 25 mg PO BID PRN (Reason: anxiety) Qty: 7 0RF No Action guanfacine 1 mg tablet 1 mg PO DAILY hydroxychloroquine 200 mg tablet 200 mg PO BID hydrocodone-acetaminophen 5-325 mg tablet 1 tab PO BID PRN meloxicam 15 mg tablet 15 mg PO DAILY Ozempic 2 mg/dose (8 mg/3 mL) pen injector SUBCUT Patient Comments: [NO ORIGINAL SIG] ezetimibe 10 mg tablet 10 mg PO DAILY sertraline 50 mg tablet 50 mg PO DAILY desvenlafaxine succinate 50 mg tablet extended release 24 hr 50 mg PO DAILY nadolol 80 mg tablet 80 mg PO DAILY gabapentin 600 mg tablet PO ondansetron HCl 4 mg tablet PO insulin glargine-yfgn 100 unit/mL (3 mL) insulin pen SUBCUT Patient Comments: [NO ORIGINAL SIG] Glucose: Test Strips 0 str Qty: 30 3RF insulin aspart U-100 [Novolog FlexPen U-100 Insulin] 100 UNIT/1 ML insulin pen 0 SQ TIDP PRNQty: 15 3RF [place] 0 dev Qty: 150 PRNRF topiramate [Topamax] 100 mg tablet 100 mg PO .COMPLEX Qty: 60 1RF Rx Instructions: 100 mg PO twice a day, along with the 50 MG for a total of 150 MG twice a day.; sumatriptan 20 mg/actuation spray,non-aerosol 20 mg NASAL ONCE Qty: 6 1RF Rx Instructions: into one nostril; if headache remains, may repeat dose into other nostril once after at least 2 hours sumatriptan succinate [Imitrex] 100 mg tablet 100 mg PO .COMPLEX PRN (Reason: migraine headache) Qty: 12 1RF Rx Instructions: 100 mg PO 1 at onset, may repeat after 2 hours PRN; Referrals: Katya Sahni MD [Primary Care Provider] - Stand Alone Forms: Patient Portal/API/Survey ED Sign-out <Ruth Rick DO - Last Filed: 01/30/24 18:23> Cosign ED Attending Daquan Attestation: I was immediately available in the department for consultation.
== END 2024-01-29 17:52 | disposition home or self-care (01) ==
PROVIDERS: Emergency Provider Student in an Organized Health Care Education/Training Program; PCP Internal Medicine
DX: F41.9 Anxiety disorder, unspecified (principal)
CPT/HCPCS: 99283

== ENCOUNTER → 2024-02-29 11:57 | Outpatient (CLI) | payer OTHER, SELFPAY ==
[2024-02-29 12:37] LABS: Add Manual Diff / Slide Review NO; Basophils Absolute Auto 0 /uL (0-100); Basophils Percent Auto 0.5 % (0-2); Eosinophils Absolute Auto 0 /uL (0-450); Eosinophils Percent Auto 0.2 % (2-4); Hematocrit 41.2 % (36-46); Hemoglobin 13.6 g/dL (12.0-16.0); Lymphocytes Absolute Auto 2000 /uL (1100-4500); Lymphocytes Percent Auto 43.1 % (25-40); Mean Corpuscular HGB Conc 33.1 % (30-36); Mean Corpuscular Hemoglobin 31.7 PG (26-34); Mean Corpuscular Volume 95.8 fL (80-100); Monocytes Absolute Auto 200 /uL (0-900); Monocytes Percent Auto 4.7 % (3-14); Neutrophils Absolute Auto 2400 /uL (1500-7000); Neutrophils Percent Auto 51.5 % (50-75); Platelet Count 253 X10^3/uL (150-400); Red Cell Distribution Width 12.9 % (11.6-14.8); White Blood Cell Count 4.6 X10^3/uL (4.5-11.0)
[2024-02-29 13:01] LABS: Alanine Aminotransferase 32 IU/L (<35); Albumin 4.4 g/dL (3.5-5.0); Albumin Globulin Ratio 1.6 (1.0-2.8); Alkaline Phosphatase 87 U/L (38-126); Aspartate Aminotransferase 28 IU/L (14-36); BUN Creatinine Ratio 12.1 (6-22); Bilirubin Total 0.6 mg/dL (0.2-1.3); Blood Urea Nitrogen 13 mg/dL (7-17); C-Reactive Protein Quant < 0.5 mg/dL (<1.0); Calcium 9.8 mg/dL (8.4-10.2); Carbon Dioxide 23 mmol/L (22-32); Chloride 109 mmol/L (98-107); Estimated Glomerular Filt Rate 57 mL/min (>60); Globulin 2.7 g/dL (1.7-4.1); Glucose 157 mg/dL (80-110); HEMOLYSIS < 15 (0-50); Sodium 142 mmol/L (137-145); Total Protein 7.1 g/dL (6.3-8.2)
[2024-02-29 15:20] LABS: Erythrocyte Sedimentation Rate 4 MM/HR (0-20)
== END ==
PROVIDERS: PCP Internal Medicine; Referring Provider Physician Assistant Medical; Visit Provider Physician Assistant Medical
DX: M12.9 Arthropathy, unspecified (principal)
CPT/HCPCS: 36415; 80053; 85025; 85651; 86140

== ENCOUNTER → 2024-04-10 12:57 | Outpatient (CLI) | payer OTHER, SELFPAY ==
[2024-04-10 14:00] LABS: C-Reactive Protein Quant < 0.5 mg/dL (<1.0)
[2024-04-10 14:05] LABS: Erythrocyte Sedimentation Rate 15 MM/HR (0-20)
== END ==
LOC: LAB 12:58
PROVIDERS: PCP Internal Medicine; Referring Provider Physician Assistant Medical; Visit Provider Physician Assistant Medical
DX: M12.9 Arthropathy, unspecified (principal)
CPT/HCPCS: 36415; 85651; 86140

== ENCOUNTER 2024-05-28 10:24 | Emergency (ER) | payer OTHER, SELFPAY ==
[2024-05-28 10:42] VITALS: BP 131/63; PULSE 73; RESP 14; TEMP 36.1; O2SAT 99; BMI 23.8
--- NOTE | 2024-05-28 11:27 | DI.RAD.S_ITS ---
PROCEDURE: XR THORACIC SPINE 3V INDICATIONS: upper back pain TECHNIQUE: 3 views of the thoracic spine were acquired. COMPARISON: None. FINDINGS: Bones: No fractures or dislocations. No suspicious bony lesions. 12 pairs of ribs are noted, and appear intact where visualized. Mild multilevel degenerative changes. Soft tissues: No paravertebral stripe thickening. Surgical clips are seen in the upper abdomen. IMPRESSION: No acute bony abnormality. Mild multilevel thoracic spondylosis. Approved by: Pk Kim M.D. on 05/28/2024 at 12:04
--- NOTE | 2024-05-28 11:29 | ED.BACK ---
HPI - Back Pain/Injury General Chief Complaint: Back Pain/Injury Stated Complaint: back pain needs xray Time Seen by Provider: 05/28/24 11:17 Source: patient History of Present Illness HPI Narrative: 68-year-old female with past medical history hypertension, hyperlipidemia, diabetes, depression, anxiety, migraine, rheumatoid arthritis presents to the ED for right-sided upper back pain. Patient states that her back pain started spontaneously 2-3 months ago. No trauma. No aggravating or alleviating factors. Patient saw her PCP Dr. Sahni yesterday who recommended she come to the ED for an x-ray. Patient denies any new numbness, tingling, weakness. There is full range of motion. Related Data Home Medications Medication Instructions Recorded Confirmed desvenlafaxine succinate 50 mg 50 mg PO DAILY 01/25/24 01/25/24 tablet,extended release 24 hr ezetimibe 10 mg tablet 10 mg PO DAILY 01/25/24 01/25/24 gabapentin 600 mg tablet mg PO 01/25/24 01/25/24 guanfacine 1 mg tablet 1 mg PO DAILY 01/25/24 01/25/24 hydrocodone 5 mg-acetaminophen 325 1 tab PO BID PRN 01/25/24 01/25/24 mg tablet hydroxychloroquine 200 mg tablet 200 mg PO BID 01/25/24 01/25/24 insulin glargine-yfgn 100 unit/mL unit SUBCUT 01/25/24 01/25/24 (3 mL) subcutaneous pen meloxicam 15 mg tablet 15 mg PO DAILY 01/25/24 01/25/24 nadolol 80 mg tablet 80 mg PO DAILY 01/25/24 01/25/24 ondansetron HCl 4 mg tablet mg PO 01/25/24 01/25/24 semaglutide 2 mg/dose (8 mg/3 mL) mg SUBCUT 01/25/24 01/25/24 subcutaneous pen injector (Ozempic) sertraline 50 mg tablet 50 mg PO DAILY 01/25/24 01/25/24 Previous Rx's Medication Instructions Recorded Glucose: Test Strips 0 str ##30 12/03/15 insulin aspart U-100 100 unit/mL 0 SQ TIDP PRN #15 vials 05/18/16 (3 mL) subcutaneous pen (Novolog FlexPen U-100 Insulin aspart) [place] 0 dev ##150 11/09/17 topiramate 100 mg tablet (Topamax) 100 mg PO .COMPLEX #60 tabs 12/25/18 sumatriptan 20 mg/actuation nasal 20 mg intranasal ONCE #6 ea 05/21/19 spray sumatriptan succinate 100 mg 100 mg PO .COMPLEX PRN migraine 05/21/19 tablet (Imitrex) headache #12 tabs hydroxyzine HCl 25 mg tablet 25 mg PO BID PRN anxiety #7 tabs 01/29/24 Allergies Allergy/AdvReac Type Severity Reaction Status Date / Time infliximab [From Remicade] Allergy Verified 05/28/24 10:40 codeine [CODEINE] AdvReac Intermediate nausea Verified 05/28/24 10:40 pantoprazole [PANTOPRAZOLE] AdvReac Intermediate NAUSEA, Verified 05/28/24 10:40 TINGLING IN HANDS AND FEET Review of Systems Constitutional Constitutional: Denies chills, Denies fatigue, Denies fever(s), Denies frequent falls, Denies lethargy and Denies weakness Eyes Eyes: Denies change in vision, Denies eye discharge, Denies irritation and Denies loss of vision ENT Ears, Nose, Mouth, and Throat: Denies change in voice, Denies dizziness, Denies neck pain, Denies sore throat and Denies throat swelling Cardiovascular Cardiovascular: Denies chest pain, Denies irregular heart rhythm, Denies lightheadedness, Denies palpitations, Denies dyspnea, Denies dyspnea on exertion and Denies orthopnea Respiratory Respiratory: Denies cough, Denies dyspnea, Denies dyspnea on exertion and Denies wheezing Gastrointestinal Gastrointestinal: Denies abdominal pain, Denies change in bowel habits, Denies diarrhea, Denies nausea and Denies vomiting Musculoskeletal Musculoskeletal: Denies neck pain and Denies numbness Comments: Right-sided upper back pain Integumentary/Breasts Skin/Breast: Denies pruritus, Denies erythema, Denies rash and Denies wounds Neurologic Neurologic: Denies behavioral changes, Denies confusion, Denies dizziness, Denies frequent falls, Denies loss of vision, Denies numbness and Denies weakness Psychiatric Psychiatric: Denies anxiety, Denies behavioral changes, Denies confusion, Denies depression, Denies homicidal ideation and Denies suicidal ideation Endocrine Endocrine: Denies fatigue, Denies flushing and Denies palpitations Hematologic/Lymphatic Hematologic/Lymphatic: Denies easy bruising Allergic/Immunologic Allergic/Immunologic: Denies urticaria, Denies throat swelling and Denies wheezing Patient History Medical History Ashkenazi Latter Day ancestry (04/16/15) Diarrhea Essential hypertension (05/17/16) Generalized anxiety disorder (06/13/16) Generalized muscle ache Idiopathic peripheral neuropathy (10/29/10) Major depression Memory loss (10/29/10) Migraine without aura and without status migrainosus, not intractable (10/29/10) Mild intermittent asthma without complication (10/29/10) Mixed hyperlipidemia (10/29/10) Recurrent major depressive disorder, in partial remission (10/29/10) Rheumatoid arthritis involving multiple sites with positive rheumatoid factor (10/29/10) Rhinorrhea Type 2 diabetes mellitus with hyperglycemia (04/28/16) UTI (urinary tract infection) UTI (urinary tract infection) Yeast infection Surgical History History of carpal tunnel repair Status post laparoscopic cholecystectomy Status post laparoscopy Social History Smoking Status: Never smoker Smoking Status: Never smoker Exam Narrative Exam Narrative: Const General:?cooperative, healthy appearing and comfortable [facility] Head:?normal to inspection Ears:?hearing grossly normal bilaterally Nose:?external nose normal Face and sinus:?normal facial exam and sinuses nontender Mouth:?oral mucosae normal Throat:?posterior oropharynx normal Eyes General:?appearance normal, both eyes and all related structures Neck Neck:?normal visual inspection and no lymphadenopathy noted Resp Effort & Inspection:?normal respiratory effort Auscultation:?clear to auscultation bilaterally Cardio Rate:?regular rate Rhythm:?regular rhythm Musculoskeletal No midline tenderness to palpation. No paraspinal tenderness to palpation. Strength and sensation is intact. There is full range of motion. Patient is neurovascularly intact. Gait is normal. Neuro General:?patient alert, patient awake and patient oriented x3 Initial Vital Signs Initial Vital Signs: Vital Signs Temperature 96.9 F L 05/28/24 10:42 Pulse Rate 73 05/28/24 10:42 Respiratory Rate 14 05/28/24 10:42 Blood Pressure 131/63 05/28/24 10:42 Pulse Oximetry 99 05/28/24 10:42 Oxygen Delivery Method Room Air 05/28/24 10:42 Course Orders Ordered: ED Orders 05/28/24 11:27 XR thoracic spine 3V Stat Vital Signs Vital signs: Vital Signs - 8 hr 05/28/24 10:42 Temperature 96.9 F L Pulse Rate 73 Respiratory Rate 14 Blood Pressure 131/63 Pulse Oximetry 99 Oxygen Delivery Method Room Air MDM - Back Pain/Injury MDM Narrative Medical decision making narrative: 68-year-old female with past medical history hypertension, hyperlipidemia, diabetes, depression, anxiety, migraine, rheumatoid arthritis presents to the ED for right-sided upper back pain. Thoracic x-ray has been ordered per her PCP's request. Physical exam is reassuring for full range of motion, strength and sensation intact, no midline tenderness to palpation. Chest x-ray shows no acute bony abnormality. Mild multilevel thoracic spondylosis. Recommend patient follow-up with her PCP Dr. Sahni. Supportive treatment recommended. ED return precautions discussed with patient. Patient verbalized understanding. Medical records reviewed: Yes Discharge Plan Departure Patient Disposition: Home Clinical Impression: Back pain Qualifiers: Back pain location: thoracic back pain Chronicity: acute Back pain laterality: right Qualified Code(s): M54.6 - Pain in thoracic spine Instructions: DI for Thoracic Back Pain Activity Restrictions/Additional Instructions: You were evaluated in the ED today for upper back pain. Your x-ray did not show any fractures or dislocations. Please follow-up with your PCP Dr. Sahni as soon as possible. Return to the ED if you have worsening symptoms. Prescriptions: No Action guanfacine 1 mg tablet 1 mg PO DAILY hydroxychloroquine 200 mg tablet 200 mg PO BID hydrocodone-acetaminophen 5-325 mg tablet 1 tab PO BID PRN meloxicam 15 mg tablet 15 mg PO DAILY Ozempic 2 mg/dose (8 mg/3 mL) pen injector SUBCUT Patient Comments: [NO ORIGINAL SIG] ezetimibe 10 mg tablet 10 mg PO DAILY sertraline 50 mg tablet 50 mg PO DAILY desvenlafaxine succinate 50 mg tablet extended release 24 hr 50 mg PO DAILY nadolol 80 mg tablet 80 mg PO DAILY gabapentin 600 mg tablet PO ondansetron HCl 4 mg tablet PO insulin glargine-yfgn 100 unit/mL (3 mL) insulin pen SUBCUT Patient Comments: [NO ORIGINAL SIG] Glucose: Test Strips 0 str Qty: 30 3RF insulin aspart U-100 [Novolog FlexPen U-100 Insulin] 100 UNIT/1 ML insulin pen 0 SQ TIDP PRNQty: 15 3RF [place] 0 dev Qty: 150 PRNRF topiramate [Topamax] 100 mg tablet 100 mg PO .COMPLEX Qty: 60 1RF Rx Instructions: 100 mg PO twice a day, along with the 50 MG for a total of 150 MG twice a day.; sumatriptan 20 mg/actuation spray,non-aerosol 20 mg NASAL ONCE Qty: 6 1RF Rx Instructions: into one nostril; if headache remains, may repeat dose into other nostril once after at least 2 hours sumatriptan succinate [Imitrex] 100 mg tablet 100 mg PO .COMPLEX PRN (Reason: migraine headache) Qty: 12 1RF Rx Instructions: 100 mg PO 1 at onset, may repeat after 2 hours PRN; hydroxyzine HCl 25 mg tablet 25 mg PO BID PRN (Reason: anxiety) Qty: 7 0RF Referrals: Katya Sahni MD [Primary Care Provider] - Stand Alone Forms: Patient Portal/API/Survey
[2024-05-28 12:27] VITALS: BP 117/57; PULSE 70; RESP 18; TEMP 37.1; O2SAT 100
== END 2024-05-28 12:25 | disposition home or self-care (01) ==
PROVIDERS: Emergency Provider Student in an Organized Health Care Education/Training Program; PCP Internal Medicine
DX: M54.6 Pain in thoracic spine (principal)
CPT/HCPCS: 72072; 99281; 99283

== ENCOUNTER → 2024-08-16 09:45 | Outpatient (CLI) | payer OTHER, SELFPAY ==
--- NOTE | 2024-08-16 | DI.RAD.S_ITS ---
PROCEDURE: XR KNEE LT 4V INDICATIONS: KNEE PAIN TECHNIQUE: 4 views of the knee were acquired. COMPARISON: None. FINDINGS: Bones: No fractures or dislocations. No significant patellar subluxation. Mild tricompartmental osteoarthritis is seen more notably in medial femoral tibial compartment. No suspicious bony lesions. Soft tissues: No joint effusion. No suspicious soft tissue calcifications. IMPRESSION: No acute left knee fracture or dislocation. No significant joint effusion. Mild tricompartmental osteoarthritis. Dictated by: Aram Pereira M.D. on 08/16/2024 at 17:08 Approved by: Aram Pereira M.D. on 08/16/2024 at 17:10
--- NOTE | 2024-08-16 | DI.RAD.S_ITS ---
PROCEDURE: XR KNEE RT 4V INDICATIONS: KNEE PAIN TECHNIQUE: 4 views of the knee were acquired. COMPARISON: None. FINDINGS: Bones: No fractures or dislocations. Mild tricompartmental osteoarthritis is seen. No significant patellar subluxation. No suspicious bony lesions. Soft tissues: No joint effusion. No suspicious soft tissue calcifications. IMPRESSION: No acute right knee fracture or dislocation. No significant joint effusion. Mild tricompartmental osteoarthritis. Dictated by: Aram Pereira M.D. on 08/16/2024 at 17:10 Approved by: Aram Pereira M.D. on 08/16/2024 at 17:11
== END ==
LOC: LAB 09:46 → RAD 10:02
PROVIDERS: PCP Internal Medicine; Referring Provider Physician Assistant Medical; Visit Provider Physician Assistant Medical
DX: M17.0 Bilateral primary osteoarthritis of knee (principal); M06.00 Rheumatoid arthritis without rheumatoid factor, unspecified site
CPT/HCPCS: 73564

== ENCOUNTER → 2024-10-08 09:12 | Outpatient (CLI) | payer OTHER, SELFPAY ==
--- NOTE | 2024-10-08 | DI.RAD.S_ITS ---
PROCEDURE: XR ABDOMEN MIN 2V INDICATIONS: Unspecified abdominal pain TECHNIQUE: 2 views of the abdomen were acquired. COMPARISON: None. FINDINGS: Surgical changes and devices: Cholecystectomy clips. Bowel: No pneumoperitoneum. The bowel gas pattern is normal. Moderately large fecal load. Soft tissues: No masses; visualized solid organ contours appear normal in size. No suspicious abdominal calcifications. Bones: No suspicious bony abnormalities. IMPRESSION: Normal bowel gas pattern. Moderately large fecal load. Dictated by: Chivo Carney M.D. on 10/08/2024 at 9:55 Approved by: Chivo Carney M.D. on 10/08/2024 at 9:56
--- NOTE | 2024-10-08 | DI.RAD.S_ITS ---
PROCEDURE: XR CHEST 2V INDICATIONS: Unspecified Abdominal Pain TECHNIQUE: 2 views of the chest were acquired. COMPARISON: [facility], , CHEST 1 VIEW, 12/25/2016, 18:26. FINDINGS: Surgical changes and devices: None. Lungs and pleura: Lungs are clear. No pleural effusions or pneumothorax. Mediastinum: Mediastinal contours are normal. Heart size is normal. Bones and chest wall: No suspicious bony abnormalities. Soft tissues appear unremarkable. IMPRESSION: No acute cardiopulmonary abnormality is seen. Dictated by: Chivo Carney M.D. on 10/08/2024 at 9:56 Approved by: Chivo Carney M.D. on 10/08/2024 at 9:56
== END ==
PROVIDERS: PCP Internal Medicine; Referring Provider Family Medicine; Visit Provider Family Medicine
DX: R10.9 Unspecified abdominal pain (principal)
CPT/HCPCS: 71046; 74019

== ENCOUNTER → 2024-11-29 15:20 | Outpatient (CLI) | payer OTHER, SELFPAY ==
--- NOTE | 2024-11-29 15:21 | DI.CT.S_ITS ---
PROCEDURE: CT KIDNEY URETER BLADDER (KUB) INDICATIONS: Left flank pain TECHNIQUE: Axial sections were acquired from the lung bases to the pubic symphysis. Coronal and sagittal reformats were performed. For radiation dose reduction, the following was used: automated exposure control, adjustment of mA and/or kV according to patient size. COMPARISON: None. FINDINGS: Image quality: Diagnostic. Lower Chest: No significant findings. URINARY: Right Kidney: No obstructing stones or hydronephrosis. 3 nonobstructing stone in midpole right kidney is seen measures 6 mm in size and 781 Hounsfield unit in density. Right Ureter: No hydroureter. Left Kidney: There is [id number] left-sided hydronephrosis. Multiple nonobstructing stones are seen scattered in left renal parenchyma and measures up to 3 mm in size. Multiple simple appearing left renal cysts are seen measures up to 4.5 x 4.4 cm in size in mid to lower pole left kidney lateral cortex. Left Ureter: No significant hydroureter. No definite ureteral stone is seen. Evaluation is limited due to presence of numerous phleboliths along the expected course of distal ureter. Bladder: Normal wall thickness. No stones. ABDOMEN: Liver: No contour-deforming solid mass. Gallbladder: Gallbladder is surgically absent. Biliary ducts: No biliary dilation. Pancreas: No ductal dilation. Spleen: Size is within normal limits. Adrenal Glands: No adrenal nodules. Stomach and Bowel: Normal colonic caliber, without significant wall thickening. [id number] fecal stasis in the colon is seen. Appendix is visualized and is within normal limits. Sigmoid diverticulosis without CT evidence of acute diverticulitis. Peritoneum: No abnormal intraperitoneal fluid. No free air. Ventral Wall: No hernia. Nonspecific slightly hyperdense material within right anterior abdominal wall subcutaneous fat is seen measures up to 6.3 x 1.8 cm in largest transverse and AP dimension and measures 48.6 Hounsfield unit in density series 2, image 65. Abdominal Nodes: No enlarged retroperitoneal or mesenteric lymph nodes. Vessels: Aorta and inferior vena cava are normal in size. PELVIS: Pelvic Organs: There is suggestion of hysterectomy. Pelvic Nodes: Unremarkable. Miscellaneous: No inguinal hernias are seen. Bones: No aggressive appearing bony lesions. IMPRESSION: 1. Bess-ui-[id number] left-sided hydronephrosis without definite hydroureter or obstructing ureteral stone. Limited evaluation of distal ureters due to presence of numerous phleboliths. Finding may represent a recently passed left-sided renal stone suggest clinical correlation and follow-up. 2. Bilateral nonobstructing renal stones. Left-sided renal cysts as above. No gross solid appearing renal lesion. No right-sided hydronephrosis or hydroureter. Normal appearing distended urinary bladder. 3. Moderate constipation. No bowel obstruction or abnormal bowel wall thickening. No free fluid or free air. 4. Possible hematoma or seroma in right anterior abdominal wall subcutaneous soft tissue as above. No evidence of abscess collection. Dictated by: Aram Pereira M.D. on 11/29/2024 at 19:49 Approved by: Aram Pereira M.D. on 11/29/2024 at 20:34
== END ==
LOC: CT 15:20
PROVIDERS: PCP Internal Medicine; Referring Provider Internal Medicine; Visit Provider Internal Medicine
DX: N13.30 Unspecified hydronephrosis (principal); N20.0 Calculus of kidney; N28.1 Cyst of kidney, acquired; K59.00 Constipation, unspecified; K57.30 Diverticulosis of large intestine without perforation or abscess without bleeding; R10.9 Unspecified abdominal pain; Z90.49 Acquired absence of other specified parts of digestive tract
CPT/HCPCS: 74176

== ENCOUNTER → 2024-12-02 16:45 | Outpatient (CLI) | payer OTHER, SELFPAY | PROVIDERS: PCP Internal Medicine; Visit Provider Chiropractor | DX: R30.0 Dysuria (principal) | CPT/HCPCS: 87086 ==

== ENCOUNTER 2024-12-05 14:02 | Emergency (ER) | payer OTHER, SELFPAY ==
[2024-12-05] VITALS (9 sets, daily range): BP systolic 119–150; BP diastolic 56–75; PULSE 85–100; RESP 12–22; TEMP 36.9; O2SAT 98–100; BMI 19.4
--- NOTE | 2024-12-05 14:15 | EKG_ITS ---
[facility] [address] [address] Test Date: 2024-12-05 Pat Name: Paloma Beltran Department: [facility] Room: Gender: Female [employer] Hel[employer]: : 1955 Requested By: Order Number: [id number] Reading MD: Lewis Martinez MD Measurements Intervals [place] Rate: 87 P: 67 MI: 134 QRS: 71 QRSD: 78 T: 113 QT: 370 QTc: 445 Interpretive Statements Normal sinus rhythm Electronically Signed On 12-09-2024 7:43:50 PDT by Lewis Martinez MD
[2024-12-05 14:42] LABS: Add Manual Diff / Slide Review NO; Hematocrit 36.4 % (36-46); Hemoglobin 12.4 g/dL (12.0-16.0); Lymphocytes Absolute Auto 1400 /uL (1100-4500); Mean Corpuscular HGB Conc 34.0 % (30-36); Mean Corpuscular Hemoglobin 33.5 PG (26-34); Mean Corpuscular Volume 98.5 fL (80-100); Platelet Count 211 X10^3/uL (150-400)
[2024-12-05 14:59] LABS: Alanine Aminotransferase 40 IU/L (<35); Albumin 4.5 g/dL (3.5-5.0); Albumin Globulin Ratio 1.8 (1.0-2.8); Alkaline Phosphatase 66 U/L (38-126); Blood Urea Nitrogen 22 mg/dL (7-17); Calcium 9.4 mg/dL (8.4-10.2); Carbon Dioxide 26 mmol/L (22-32); Chloride 99 mmol/L (98-107); Estimated Glomerular Filt Rate > 60 mL/min (>60); Globulin 2.5 g/dL (1.7-4.1); Glucose 101 mg/dL (70-99); HEMOLYSIS < 15 (0-50); Lipase 35 U/L (23-300); Potassium 3.8 mmol/L (3.4-5.1); Sodium 135 mmol/L (137-145); Total Protein 7.0 g/dL (6.3-8.2)
--- NOTE | 2024-12-05 17:28 | ED.ABDPAIN ---
HPI - Abdominal Pain <Ruth Rick DO - Last Filed: 12/11/24 10:33> General Chief Complaint: Abdominal Pain Stated Complaint: Kidney stones/vomiting/phys referral Time Seen by Provider: 12/05/24 14:14 History of Present Illness HPI narrative: 61-year-old female on venlafaxine, diabetes on insulin, history of rheumatoid arthritis, dyslipidemia who presents with complaint of increased abdominal pain patient states it is more in the left side on the flank radiates little bit lower. She started developed a little bit of right-sided flank pain. She has had some nausea or vomiting increased his comfort. No fevers. States she has been constipated she had had to extract some stool with her fingers earlier today. She notes no dysuria urgency or frequency. Patient states this feels similar to her kidney stone pain. Patient denies any chest pain or shortness of breath. No syncope. She states she has had pain since May that has not ever really completely resolved but it is worse lately. She states she has been told she has kidney stones and some swelling of 1 of her kidneys but it is unclear if this is within her kidney or stone within the ureter. Patient was not contact with her primary care team who told her to go to the ER to get a CT. States she has a negative urine 2 days ago. Regular tobacco, no recreational drugs. Related Data Home Medications ?Medication ?Instructions ?Recorded ?Confirmed desvenlafaxine succinate 50 mg 50 mg PO DAILY 01/25/24 12/02/24 tablet,extended release 24 hr ezetimibe 10 mg tablet 10 mg PO DAILY 01/25/24 12/02/24 hydrocodone 5 mg-acetaminophen 325 1 tab PO BID PRN 01/25/24 12/02/24 mg tablet insulin glargine-yfgn 100 unit/mL unit SUBCUT 01/25/24 12/02/24 (3 mL) subcutaneous pen meloxicam 15 mg tablet 15 mg PO DAILY 01/25/24 12/02/24 ondansetron HCl 4 mg tablet mg PO 01/25/24 12/02/24 Previous Rx's ?Medication ?Instructions ?Recorded Glucose: Test Strips 0 str ##30 12/03/15 insulin aspart U-100 100 unit/mL 0 SQ TIDP PRN #15 vials 05/18/16 (3 mL) subcutaneous pen (Novolog FlexPen U-100 Insulin aspart) Crawford 0 dev ##150 11/09/17 sumatriptan 20 mg/actuation nasal 20 mg intranasal ONCE #6 ea 05/21/19 spray sumatriptan succinate 100 mg 100 mg PO .COMPLEX PRN migraine 05/21/19 tablet (Imitrex) headache #12 tabs hydroxyzine HCl 25 mg tablet 25 mg PO BID PRN anxiety #7 tabs 01/29/24 Allergies Allergy/AdvReac Type Severity Reaction Status Date / Time infliximab (From Remicade) Allergy Mild ITCHING Verified 12/05/24 14:15 codeine (CODEINE) AdvReac Intermediate nausea Verified 12/05/24 14:15 pantoprazole (PANTOPRAZOLE) AdvReac Intermediate NAUSEA, Verified 12/05/24 14:15 TINGLING IN HANDS AND FEET [id number] Reductase AdvReac Intermediate Cramping Verified 12/05/24 14:15 Inhibitor of the Muscles Review of Systems <Ruth Rick DO - Last Filed: 12/11/24 10:33> Review of Systems ROS Unobtainable: All systems reviewed & are unremarkable except as noted in HPI and below Patient History <Ruth Rick DO - Last Filed: 12/11/24 10:33> Medical History Generalized muscle ache Diarrhea UTI (urinary tract infection) Yeast infection UTI (urinary tract infection) Rhinorrhea Major depression Generalized anxiety disorder (06/13/16) Type 2 diabetes mellitus with hyperglycemia (04/28/16) Essential hypertension (05/17/16) Ashkenazi Mandaeism ancestry (04/16/15) Memory loss (10/29/10) Idiopathic peripheral neuropathy (10/29/10) Recurrent major depressive disorder, in partial remission (10/29/10) Migraine without aura and without status migrainosus, not intractable (10/29/10) Mixed hyperlipidemia (10/29/10) Mild intermittent asthma without complication (10/29/10) Rheumatoid arthritis involving multiple sites with positive rheumatoid factor (10/29/10) Surgical History Status post laparoscopy History of carpal tunnel repair Status post laparoscopic cholecystectomy Exam <Ruth Rick DO - Last Filed: 12/11/24 10:33> Narrative Exam Narrative: GENERAL: Alert and oriented x three, well-appearing female in mild distress HEENT: Head normocephalic, atraumatic, EOMI, pupils reactive, face symmetric, moist mucous membranes NECK: Supple, full range of motion CARDIOVASCULAR: Regular rate and rhythm without murmurs, rubs or gallops. RESPIRATORY: Breath sounds equal bilaterally, no wheezes rales or rhonchi. ABDOMEN: Soft, nontender. Normoactive bowel sounds all 4 quadrants. No guarding or rebound, rigidity, no mass, nondistended. : No CVA tenderness EXTREMITIES: Normal range of motion, no clubbing or edema. Neurovascularly intact NEUROLOGICAL: Cranial nerves II through XII grossly intact. Moving all extremities SKIN: Warm, dry, no petechiae, no rashes or lesions. Initial Vital Signs Initial Vital Signs: Vital Signs Temperature 98.5 F 12/05/24 14:11 Pulse Rate 92 H 12/05/24 14:11 Respiratory Rate 18 12/05/24 14:11 Blood Pressure 130/75 12/05/24 14:11 Pulse Oximetry 98 12/05/24 14:11 Oxygen Delivery Method Room Air 12/05/24 14:11 <Jonathan Borden MD - Last Filed: 12/06/24 04:24> Initial Vital Signs Initial Vital Signs: Vital Signs Temperature 98.5 F 12/05/24 14:11 Pulse Rate 92 H 12/05/24 14:11 Respiratory Rate 18 12/05/24 14:11 Blood Pressure 130/75 12/05/24 14:11 Pulse Oximetry 98 12/05/24 14:11 Oxygen Delivery Method Room Air 12/05/24 14:11 Course <Ruth Rick DO - Last Filed: 12/11/24 10:33> Orders Ordered: Discontinued Medications Acetaminophen (Acetaminophen 325 Mg Tablet) 975 mg PO NOW ONE Stop: 12/05/24 17:35 Last Admin: 12/05/24 17:41 Dose: 975 mg Documented By: MARC Magnesium Citrate (Magnesium Citrate 300 Ml Solution) 300 ml PO NOW ONE Stop: 12/05/24 18:49 Last Admin: 12/05/24 20:39 Dose: 300 ml Documented By: MARC Mineral Oil (Mineral Oil 1 Each Enema) 1 each ME NOW ONE Stop: 12/05/24 18:49 Last Admin: 12/05/24 19:11 Dose: 1 each Documented By: MARC Ondansetron HCl (Ondansetron 4 Mg/2 Ml Inj) 4 mg IV NOW PRN PRN Reason: Nausea And Vomiting Ondansetron HCl (Ondansetron 4 Mg Odt) 4 mg PO NOW PRN PRN Reason: Nausea And Vomiting Vital Signs Vital signs: Vital Signs - 8 hr 12/05/24 20:50 Pulse Rate 85 Respiratory Rate 20 Blood Pressure 132/64 Pulse Oximetry 100 Oxygen Delivery Method Room Air <Jonathan Borden MD - Last Filed: 12/06/24 04:24> Orders Ordered: Discontinued Medications Acetaminophen (Acetaminophen 325 Mg Tablet) 975 mg PO NOW ONE Stop: 12/05/24 17:35 Last Admin: 12/05/24 17:41 Dose: 975 mg Documented By: MARC Magnesium Citrate (Magnesium Citrate 300 Ml Solution) 300 ml PO NOW ONE Stop: 12/05/24 18:49 Last Admin: 12/05/24 20:39 Dose: 300 ml Documented By: MARC Mineral Oil (Mineral Oil 1 Each Enema) 1 each ME NOW ONE Stop: 12/05/24 18:49 Last Admin: 12/05/24 19:11 Dose: 1 each Documented By: MARC Ondansetron HCl (Ondansetron 4 Mg/2 Ml Inj) 4 mg IV NOW PRN PRN Reason: Nausea And Vomiting Ondansetron HCl (Ondansetron 4 Mg Odt) 4 mg PO NOW PRN PRN Reason: Nausea And Vomiting Vital Signs Vital signs: Vital Signs - 8 hr 12/05/24 20:50 Pulse Rate 85 Respiratory Rate 20 Blood Pressure 132/64 Pulse Oximetry 100 Oxygen Delivery Method Room Air MDM - Abdominal Pain <Ruth Rick DO - Last Filed: 12/11/24 10:33> Lab Data 12/05/24 14:32 12/05/24 14:32 Labs: Lab Results 12/05/24 12/05/24 12/05/24 Range/Units 14:32 17:07 18:14 WBC 7.1 (4.5-11.0) X10^3/uL RBC 3.69 L (4.0-5.2) X10^6/uL Hgb 12.4 (12.0-16.0) g/dL Hct 36.4 (36-46) % MCV 98.5 (80-100) fL MCH 33.5 (26-34) PG MCHC 34.0 (30-36) % RDW 13.3 (11.6-14.8) % Plt Count 211 (150-400) X10^3/uL Neut % (Auto) 75.4 H (50-75) % Lymph % (Auto) 19.6 L (25-40) % Maries % (Auto) 4.7 (3-14) % Eos % (Auto) 0.1 L (2-4) % Baso % (Auto) 0.2 (0-2) % Neut # (Auto) 5400 (4604-9146) /uL Lymph # (Auto) 1400 (8925-1033) /uL Maries # (Auto) 300 (0-900) /uL Eos # (Auto) 0 (0-450) /uL Baso # (Auto) 0 (0-100) /uL Sodium 135 L (137-145) mmol/L Potassium 3.8 (3.4-5.1) mmol/L Chloride 99 (98-107) mmol/L Carbon Dioxide 26 (22-32) mmol/L BUN 22 H (7-17) mg/dL Creatinine 0.62 (0.52-1.04) mg/dL Estimated GFR > 60 (>60) mL/min BUN/Creatinine Ratio 35.5 H (6-22) Glucose 101 H (70-99) mg/dL POC Whole Bld Glucose 58 L 131 H (70-99) mg/dL Calcium 9.4 (8.4-10.2) mg/dL Total Bilirubin 0.8 (0.2-1.3) mg/dL AST 37 H (14-36) IU/L ALT 40 H (<35) IU/L Alkaline Phosphatase 66 (38-126) U/L Total Protein 7.0 (6.3-8.2) g/dL Albumin 4.5 (3.5-5.0) g/dL Globulin 2.5 (1.7-4.1) g/dL Albumin/Globulin Ratio 1.8 (1.0-2.8) Lipase 35 (23-300) U/L Urine RBC (0-5/HPF) Urine WBC (0-5/HPF) Ur Squamous Epith Cells (0-5/HPF) Urine Bacteria (None) Ur Culture Indicated? Vol Urine Centrifuged 12/05/24 Range/Units 18:51 WBC (4.5-11.0) X10^3/uL RBC (4.0-5.2) X10^6/uL Hgb (12.0-16.0) g/dL Hct (36-46) % MCV (80-100) fL MCH (26-34) PG MCHC (30-36) % RDW (11.6-14.8) % Plt Count (150-400) X10^3/uL Neut % (Auto) (50-75) % Lymph % (Auto) (25-40) % Maries % (Auto) (3-14) % Eos % (Auto) (2-4) % Baso % (Auto) (0-2) % Neut # (Auto) (7106-6351) /uL Lymph # (Auto) (8431-9098) /uL Maries # (Auto) (0-900) /uL Eos # (Auto) (0-450) /uL Baso # (Auto) (0-100) /uL Sodium (137-145) mmol/L Potassium (3.4-5.1) mmol/L Chloride (98-107) mmol/L Carbon Dioxide (22-32) mmol/L BUN (7-17) mg/dL Creatinine (0.52-1.04) mg/dL Estimated GFR (>60) mL/min BUN/Creatinine Ratio (6-22) Glucose (70-99) mg/dL POC Whole Bld Glucose (70-99) mg/dL Calcium (8.4-10.2) mg/dL Total Bilirubin (0.2-1.3) mg/dL AST (14-36) IU/L ALT (<35) IU/L Alkaline Phosphatase (38-126) U/L Total Protein (6.3-8.2) g/dL Albumin (3.5-5.0) g/dL Globulin (1.7-4.1) g/dL Albumin/Globulin Ratio (1.0-2.8) Lipase (23-300) U/L Urine RBC None seen (0-5/HPF) Urine WBC 1-5/hpf (0-5/HPF) Ur Squamous Epith Cells 0-1 /hpf (0-5/HPF) Urine Bacteria None seen (None) Ur Culture Indicated? Cult not indicated Vol Urine Centrifuged 10ml (spun) Point of care testing: Point of Care Testing Glucose POC 131 Urine Dip Bedside Urine Glucose Negative Bedside Urine Bilirubin - Negative Bedside Urine Ketone - Negative Urine Specific Eastern 1.005 Bedside Urine Occult Blood - Negative Bedside Urine pH 7.0 Bedside Urine Protein - Negative Bedside Urine Urobilinogen - Negative Bedside Urine Nitrite - Negative Bedside Urine Leukocytes + 70 Esterase ECG Data Attestation: I personally reviewed and interpreted this ECG as follows: Prior ECG tracings: not available for review Interpretation: Sinus rhythm rate 87 ME 134 QRS is 78 QTC 445, no acute ST elevation depression. MDM Narrative Medical decision making narrative: 69-year-old female with current constipation, history of kidney stones and hysterectomy 2 months prior is patient's afebrile. Abdominal exam is benign. Has not increased abdominal pain some nausea or vomiting. But notes pain since May. Labs show normal white count hemoglobin of 12 platelets of 211, BUN 22 sodium is 135 creatinine and electrolytes are otherwise appropriate while here patient's glucose was 58 was given juice and food. AST 37 ALT is 40, bilirubin is 0.[address] abdomen pelvis, large colonic fecal loading also moderate gastric distention no acute small bowel obstruction. Mild distal colonic and rectal wall thickening possibly proctocolitis. Consider colonoscopy correlation if clinically indicated. Nonobstructing small renal calculi without definite hydronephrosis. Parapelvic cysts are seen bilaterally. Urine Patient has a acetaminophen. Reviewed findings patient has a quite a bit of stool, possibly some thickening proctocolitis. Patient has noted a little bit of lower abdominal pain. After discussion with the patient she is agreeable to try an enema here in the department with some magnesium citrate orally. We will likely discharge home LEs she has not any vomiting but with strict return precautions if she is not having a bowel movement in the next 24 hours. Patient has been taking MiraLax encouraged her to add Dulcolax. <Jonathan Borden MD - Last Filed: 12/06/24 04:24> Lab Data Labs: Lab Results 12/05/24 12/05/24 12/05/24 Range/Units 14:32 17:07 18:14 WBC 7.1 (4.5-11.0) X10^3/uL RBC 3.69 L (4.0-5.2) X10^6/uL Hgb 12.4 (12.0-16.0) g/dL Hct 36.4 (36-46) % MCV 98.5 (80-100) fL MCH 33.5 (26-34) PG MCHC 34.0 (30-36) % RDW 13.3 (11.6-14.8) % Plt Count 211 (150-400) X10^3/uL Neut % (Auto) 75.4 H (50-75) % Lymph % (Auto) 19.6 L (25-40) % Maries % (Auto) 4.7 (3-14) % Eos % (Auto) 0.1 L (2-4) % Baso % (Auto) 0.2 (0-2) % Neut # (Auto) 5400 (9456-7397) /uL Lymph # (Auto) 1400 (7692-9071) /uL Maries # (Auto) 300 (0-900) /uL Eos # (Auto) 0 (0-450) /uL Baso # (Auto) 0 (0-100) /uL Sodium 135 L (137-145) mmol/L Potassium 3.8 (3.4-5.1) mmol/L Chloride 99 (98-107) mmol/L Carbon Dioxide 26 (22-32) mmol/L BUN 22 H (7-17) mg/dL Creatinine 0.62 (0.52-1.04) mg/dL Estimated GFR > 60 (>60) mL/min BUN/Creatinine Ratio 35.5 H (6-22) Glucose 101 H (70-99) mg/dL POC Whole Bld Glucose 58 L 131 H (70-99) mg/dL Calcium 9.4 (8.4-10.2) mg/dL Total Bilirubin 0.8 (0.2-1.3) mg/dL AST 37 H (14-36) IU/L ALT 40 H (<35) IU/L Alkaline Phosphatase 66 (38-126) U/L Total Protein 7.0 (6.3-8.2) g/dL Albumin 4.5 (3.5-5.0) g/dL Globulin 2.5 (1.7-4.1) g/dL Albumin/Globulin Ratio 1.8 (1.0-2.8) Lipase 35 (23-300) U/L Urine RBC (0-5/HPF) Urine WBC (0-5/HPF) Ur Squamous Epith Cells (0-5/HPF) Urine Bacteria (None) Ur Culture Indicated? Vol Urine Centrifuged 12/05/24 Range/Units 18:51 WBC (4.5-11.0) X10^3/uL RBC (4.0-5.2) X10^6/uL Hgb (12.0-16.0) g/dL Hct (36-46) % MCV (80-100) fL MCH (26-34) PG MCHC (30-36) % RDW (11.6-14.8) % Plt Count (150-400) X10^3/uL Neut % (Auto) (50-75) % Lymph % (Auto) (25-40) % Maries % (Auto) (3-14) % Eos % (Auto) (2-4) % Baso % (Auto) (0-2) % Neut # (Auto) (3900-4708) /uL Lymph # (Auto) (3755-5935) /uL Maries # (Auto) (0-900) /uL Eos # (Auto) (0-450) /uL Baso # (Auto) (0-100) /uL Sodium (137-145) mmol/L Potassium (3.4-5.1) mmol/L Chloride (98-107) mmol/L Carbon Dioxide (22-32) mmol/L BUN (7-17) mg/dL Creatinine (0.52-1.04) mg/dL Estimated GFR (>60) mL/min BUN/Creatinine Ratio (6-22) Glucose (70-99) mg/dL POC Whole Bld Glucose (70-99) mg/dL Calcium (8.4-10.2) mg/dL Total Bilirubin (0.2-1.3) mg/dL AST (14-36) IU/L ALT (<35) IU/L Alkaline Phosphatase (38-126) U/L Total Protein (6.3-8.2) g/dL Albumin (3.5-5.0) g/dL Globulin (1.7-4.1) g/dL Albumin/Globulin Ratio (1.0-2.8) Lipase (23-300) U/L Urine RBC None seen (0-5/HPF) Urine WBC 1-5/hpf (0-5/HPF) Ur Squamous Epith Cells 0-1 /hpf (0-5/HPF) Urine Bacteria None seen (None) Ur Culture Indicated? Cult not indicated Vol Urine Centrifuged 10ml (spun) Point of care testing: Point of Care Testing Glucose POC 131 Urine Dip Bedside Urine Glucose Negative Bedside Urine Bilirubin - Negative Bedside Urine Ketone - Negative Urine Specific Eastern 1.005 Bedside Urine Occult Blood - Negative Bedside Urine pH 7.0 Bedside Urine Protein - Negative Bedside Urine Urobilinogen - Negative Bedside Urine Nitrite - Negative Bedside Urine Leukocytes + 70 Esterase MDM Narrative Medical decision making narrative: 69-year-old female with current constipation, history of kidney stones and hysterectomy 2 months prior is patient's afebrile. Abdominal exam is benign. Has not increased abdominal pain some nausea or vomiting. But notes pain since May. Labs show normal white count hemoglobin of 12 platelets of 211, BUN 22 sodium is 135 creatinine and electrolytes are otherwise appropriate while here patient's glucose was 58 was given juice and food. AST 37 ALT is 40, bilirubin is 0.[address] abdomen pelvis, large colonic fecal loading also moderate gastric distention no acute small bowel obstruction. Mild distal colonic and rectal wall thickening possibly proctocolitis. Consider colonoscopy correlation if clinically indicated. Nonobstructing small renal calculi without definite hydronephrosis. Parapelvic cysts are seen bilaterally. Urine Patient has a acetaminophen. Reviewed findings patient has a quite a bit of stool, possibly some thickening proctocolitis. Patient has noted a little bit of lower abdominal pain. After discussion with the patient she is agreeable to try an enema here in the department with some magnesium citrate orally. We will likely discharge home LEs she has not any vomiting but with strict return precautions if she is not having a bowel movement in the next 24 hours. Patient has been taking MiraLax encouraged her to add Dulcolax. 12/05/24, 1730, [place]. Signout from Dr Rick, anticipated DC after enema. Patient with planned discharge home, had little response to enema, offered another enema here in the emergency department, declined. Patient was given bottle of magnesium citrate for discharge as planned, prefers to have further treatment at home. Previously prepared discharge paperwork printed for discharged home with family. Discharge Plan Departure Patient Disposition: Home Clinical Impression: Proctocolitis, Constipation Activity Restrictions/Additional Instructions: He has a little bit of thickening at the distal colon rectal wall possibly proctocolitis you have a large amount of stool. If you have not had a bowel movement in the next 24 hours and your symptoms are not improving you do need to be re-evaluated. May need to follow up for colonoscopy if you are having persistent discomfort. You do have some nonobstructing small renal calculi without any hydronephrosis, there are some peripelvic cysts seen bilaterally. Continue with the MiraLax twice daily, you can take Dulcolax or Colace along with this. Drink 1/2 bottle of the magnesium citrate if you do not have a bowel movement after 4-5 hours you can drink the 2nd half of the bottle. It is also important that you hydrate to help faciliate a bowel movement. If you develop fevers, vomiting, worsening abdominal back or flank pain, any black or bloody stools, if you are not having any bowel movements or passing gas or other new or concerning changes return to the emergency department. Prescriptions: No Action hydrocodone-acetaminophen 5-325 mg tablet 1 tab PO BID PRN meloxicam 15 mg tablet 15 mg PO DAILY ezetimibe 10 mg tablet 10 mg PO DAILY desvenlafaxine succinate 50 mg tablet extended release 24 hr 50 mg PO DAILY ondansetron HCl 4 mg tablet PO insulin glargine-yfgn 100 unit/mL (3 mL) insulin pen SUBCUT Patient Comments: [NO ORIGINAL SIG] Glucose: Test Strips 0 str Qty: 30 3RF insulin aspart U-100 [Novolog FlexPen U-100 Insulin] 100 UNIT/1 ML insulin pen 0 SQ TIDP PRNQty: 15 3RF Crawford 0 dev Qty: 150 PRNRF sumatriptan 20 mg/actuation spray,non-aerosol 20 mg NASAL ONCE Qty: 6 1RF Rx Instructions: into one nostril; if headache remains, may repeat dose into other nostril once after at least 2 hours sumatriptan succinate [Imitrex] 100 mg tablet 100 mg PO .COMPLEX PRN (Reason: migraine headache) Qty: 12 1RF Rx Instructions: 100 mg PO 1 at onset, may repeat after 2 hours PRN; hydroxyzine HCl 25 mg tablet 25 mg PO BID PRN (Reason: anxiety) Qty: 7 0RF Referrals: Katya Sahni MD [Primary Care Provider, Internal Medicine] Stand Alone Forms: Patient Portal/API
--- NOTE | 2024-12-05 17:34 | DI.CT.S_ITS ---
PROCEDURE: CT ABDOMEN PELVIS W CON INDICATIONS: inc abd pain, hx kidney stones, s/p hyst 2 months, constipa TECHNIQUE: After the administration of intravenous contrast, axial sections acquired from the lung bases to the pubic symphysis. Coronal and sagittal reformats were performed. For radiation dose reduction, the following was used: automated exposure control, adjustment of mA and/or kV according to patient size. COMPARISON: [facility], CT, CT KIDNEY URETER BLADDER ([facility]), 11/29/2024, 15:33. FINDINGS: Image quality: Diagnostic Lower chest: Unremarkable lung bases. Normal heart size. Liver: Unremarkable Gallbladder and biliary system: Cholecystectomy clips, nondilated allowing for postsurgical state Pancreas: No ductal dilation Spleen: Nonenlarged Adrenals: No discrete nodules Kidneys: Multiple renal cysts are seen. There also parapelvic cysts. Nonobstructing renal calculi are seen bilaterally in the calices. No definite hydro nephrosis. Numerous phleboliths are seen adjacent to the distal ureters, which can limit evaluation. Vessels and lymph nodes: Main portal vein appears patent. Mild aortoiliac atherosclerotic calcifications. No enlarged lymph nodes by size criteria. Bowel and peritoneum: There is large colonic fecal loading. The stomach is also moderately distended. No acute small bowel obstruction identified. Mild wall thickening in the distal colon, and rectum. No drainable abscess or ascites. Nondilated appendix Body wall: Similar scarring versus granulation tissue in the anterior body wall, most obvious in the right mid abdomen Pelvis: Bladder is unremarkable. Uterus is not seen. Bones: No aggressive appearing osseous abnormality. There are degenerative changes. IMPRESSION: Large colonic fecal loading. There is also moderate gastric distention. No acute small bowel obstruction. Mild distal colonic and rectal wall thickening, possibly proctocolitis. Consider colonoscopy correlation if clinically indicated. Nonobstructing small renal calyceal calculi, without definite hydronephrosis. Parapelvic cysts are seen bilaterally. Other findings above. Dictated by: Bobby Yanez M.D. on 12/05/2024 at 18:28 Approved by: Bobby Yanez M.D. on 12/05/2024 at 18:34
[2024-12-05] MEDS: ACETAMINOPHEN 325 MG TABLET 975 MG PO (17:41)
[2024-12-05] MEDS: MINERAL OIL 1 EACH ENEMA PR (19:11)
[2024-12-05 19:21] LABS: Culture Indicated Urine Cult Not Indicated
[2024-12-05] MEDS: MAGNESIUM CITRATE 300 ML SOLUTION PO (20:39)
== END 2024-12-05 20:51 | disposition home or self-care (01) ==
PROVIDERS: Emergency Provider Emergency Medicine; PCP Internal Medicine
DX: K52.9 Noninfective gastroenteritis and colitis, unspecified (principal); K59.00 Constipation, unspecified; Z87.442 Personal history of urinary calculi
CPT/HCPCS: 74177; 80053; 81003; 81015; 82962; 83690; 85025; 93005; 99284; Q9967